=== PATIENT | female | born 1955 | race American Indian/Alaskan Native ===

== ENCOUNTER 2017-03-24 14:38 | Outpatient (CLI) | payer OTHER ==
--- NOTE | 2017-03-28 09:28 | Mammography Report ---
Bilateral mammogram: No previous studies available. CAD study utilized. Findings: Predominance adipose tissue bilaterally. No mass or microcalcification. Benign axillary nodes. Benign calcifications. Impression: Benign findings. Annual followup recommended. BI-RADS CATEGORY: 2 = Benign ACR BI-RADS MAMMOGRAPHIC CODES: 0 = Needs additional imaging evaluation; 1 = Negative; 2 = Benign; 3 = Probably benign; 4 = Suspicious; 5 = Malignant; 6 = Known biopsy-proven malignancy COMMENT: 1. Dense breast tissue, i.e., adenosis, fibrocystic changes, etc., may obscure an underlying neoplasm. 2. Approximately 10% of cancers are not detected with mammography. 3. A negative mammography report should not delay biopsy if a clinically suspicious mass is present. COMMENT: Patient follow-up letters are generated in [employer].
== END 2017-03-24 14:39 | disposition home or self-care (01) ==
LOC: MAMMO 14:38
PROVIDERS: ATTEND Internal Medicine
DX: Z12.31 Encounter for screening mammogram for malignant neoplasm of breast (principal)
CPT/HCPCS: 77067; G0202

== ENCOUNTER 2021-03-04 19:41 | Inpatient (IN) | payer MEDICARE, OTHER ==
--- NOTE | 2021-03-04 21:03 | Event Note ---
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 No preceding fall, trauma, injury. Cannot recall the last time her INR was checked. Patient states she missed a few doses of her anticoagulant a few weeks ago and she was instructed to increase her dose. General: Awake, appropriately interactive, no acute distress. Neck: Supple. Full range of motion intact. Cardiovascular: Normal peripheral perfusion. See musculoskeletal. Pulmonary: No respiratory distress. Patient is speaking normally without use of accessory muscles. Skin: No apparent rashes or lesions. Neurological: No facial asymmetry. Speech is clear. Follows commands. Patient is alert and oriented. Musculoskeletal: Significant pedal edema on the left foot as compared with the right. Tenderness to the left upper calf and left popliteal fossa. Left knee is swollen and warm on palpation as compared with the right knee. There is no overlying erythema. Psych: Cooperative. Appropriate mood and affect. Labs and imaging ordered. Further diagnostic evaluation deferred to additional ED providers following full history and complete physical exam. Attending emergency physician aware. I have greeted and performed a focused rapid initial assessment of this patient. A comprehensive ED assessment and evaluation of the patient, analysis of all test results, and completion of the medical decision-making process will be conducted by additional ED providers. This initial assessment/diagnostic orders/clinical plan/treatment(s) is/are subject to change based on patients health status, clinical progression and re-assessment. Further treatment and workup at subsequent clinical provider's discretion. Patient/guardian urged not to elope from the ED as their condition may be serious if not clinically assessed and managed.
--- NOTE | 2021-03-04 21:24 | XRay Report ---
LEFT KNEE 3 VIEWS INDICATION / CLINICAL INFORMATION: left knee pain/swelling, on coumadin,hemarthrosis COMPARISON: None available. FINDINGS: BONES and JOINT(S): No acute fracture or subluxation. There is mild tricompartmental osteoarthritis. SOFT TISSUES: There is a small joint effusion versus synovial proliferation. No other significant abn ormalities. ADDITIONAL FINDINGS: None. IMPRESSION: 1. Small left knee joint effusion versus synovial proliferation. No other acute findings. 2. Mild osteoarthritis. Signer Name: Aashish Alvarez MD Signed: 03/04/2021 9:20 PM Workstation Name: [id number]
[2021-03-04 21:50] LABS: Alanine Aminotransferase 11 units/L (7-56); BUN/Creatinine Ratio 13; Blood Urea Nitrogen 35 mg/dL (7-17); Hemolysis Index 40
[2021-03-04 22:04] LABS: Erythrocyte Sedimentation Rate 90 mm/Hr (0-20)
[2021-03-04 22:09] LABS: INR 7.74 (0.87-1.13); Partial Thromboplastin Time 89.4 Sec. (24.2-36.6)
[2021-03-04 22:18] LABS: Basophils # (Auto) 0.1 K/mm3 (0.0-0.1); Eosinophils # (Auto) 0.4 K/mm3 (0.0-0.4); Eosinophils % (Auto) 3.2 % (0.0-4.3); Hematocrit 36.4 % (30.3-42.9); Hemoglobin 11.8 gm/dl (10.1-14.3); Lymphocytes # (Auto) 4.4 K/mm3 (1.2-5.4); Mean Corpuscular HGB Conc 32 % (30-34); Mean Corpuscular Volume 83 fl (79-97); Monocytes % (Auto) 7.4 % (0.0-7.3); Platelet Count 455 K/mm3 (140-440); Red Cell Distribution Width 15.6 % (13.2-15.2)
--- NOTE | 2021-03-04 22:30 | Emergency Department Report ---
ED General Adult HPI - General Chief complaint: Extremity Injury, Lower Stated complaint: LT KNEE,LEG,ANKLE, AND FOOT PAIN PUI?: No Time Seen by Provider: 03/04/21 20:44 Source: patient Mode of arrival: Ambulatory Limitations: No Limitations - History of Present Illness Initial comments: Patient is a 65-year-old female who presents emergency room with complaints of bilateral lower extremity swelling, left knee, left ankle and left foot pain. Patient states that her symptoms started 7 days ago. Patient states that her symptoms are worsening. Patient states the pain is worsening. Patient states her swelling is worse. Patient states that the left foot swelling is worse than the right foot. Patient states the pain is a 10 out of 10. Patient states the pain is better with rest and worse with movement and palpation. Patient denies chest pain or shortness of breath. Patient states she is currently on Coumadin. Patient states she has not had her INR checked in couple months. Patient states she missed some doses and she spoke with her primary care and her primary care told her to double her dose for a few days. Patient is not sure what her last INR is. Patient states she has history of renal disease at a stage to stage III. Patient states her baseline creatinine is 1.9-2.1. 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 -: Sudden Location: left, lower extremity Severity scale (0 -10): 10 Consistency: constant Improves with: rest Worsens with: movement Associated Symptoms: denies: confusion, chest pain, cough, diaphoresis, fever/chills, headaches, loss of appetite, malaise, nausea/vomiting, rash, seizure, shortness of breath, syncope, weakness Treatments Prior to Arrival: none - Related Data Allergies Allergy/AdvReac Type Severity Reaction Status Date / Time egg AdvReac Vomiting Unverified 03/24/17 14:39 Sulfa (Sulfonamide AdvReac Swelling Unverified 03/24/17 14:39 Antibiotics) OF THE THROAT DAIRY PRODUCTS AdvReac Vomiting Uncoded 03/24/17 14:39 ED Review of Systems ROS: Stated complaint: LT KNEE,LEG,ANKLE, AND FOOT PAIN Other details as noted in HPI Constitutional: denies: chills, fever Eyes: denies: eye pain, eye discharge, vision change ENT: denies: ear pain, throat pain Respiratory: denies: cough, shortness of breath, wheezing Cardiovascular: denies: chest pain, palpitations Endocrine: no symptoms reported Gastrointestinal: denies: abdominal pain, nausea, diarrhea Genitourinary: denies: urgency, dysuria, discharge Musculoskeletal: denies: back pain, joint swelling, arthralgia Skin: denies: rash, lesions Neurological: denies: headache, weakness, paresthesias Psychiatric: denies: anxiety, depression Hematological/Lymphatic: denies: easy bleeding, easy bruising ED Past Medical Hx - Past Medical History Previous Medical History?: Yes Hx Diabetes: Yes Hx Renal Disease: Yes (Baseline creatinine 1.9-2.1) - Surgical History Past Surgical History?: Yes Hx Cholecystectomy: Yes Additional Surgical History: pacemaker/defib - Family History Family history: no significant - Social History Smoking Status: Never Smoker Substance Use Type: None ED Physical Exam - General Limitations: No Limitations General appearance: alert, in no apparent distress - Head Head exam: Present: atraumatic, normocephalic - Eye Eye exam: Present: normal appearance - ENT ENT exam: Present: mucous membranes moist - Neck Neck exam: Present: normal inspection - Respiratory Respiratory exam: Present: normal lung sounds bilaterally. Absent: respiratory distress - Cardiovascular Cardiovascular Exam: Present: regular rate, normal rhythm. Absent: systolic murmur, diastolic murmur, rubs, gallop - GI/Abdominal GI/Abdominal exam: Present: soft, normal bowel sounds - Extremities Exam Extremities exam: Present: tenderness, normal capillary refill, pedal edema, calf tenderness - Back Exam Back exam: Present: normal inspection - Neurological Exam Neurological exam: Present: alert, oriented X3 - Psychiatric Psychiatric exam: Present: normal affect, normal mood - Skin Skin exam: Present: warm, dry, intact, normal color. Absent: rash ED Course Vital Signs 03/04/21 20:00 Temperature 98.1 F Pulse Rate 76 Respiratory 16 Rate Blood Pressure 129/79 O2 Sat by Pulse 97 Oximetry - Reevaluation(s) Reevaluation #1: I discussed all results with patient. I discussed plan of care with patient. Patient agrees with plan of care and admission. Patient to be admitted to the hospitalist service. 03/05/21 00:06 - Consultations Consultation #1: Hospitalist consulted for admission. Hospitalist to admit patient. 03/05/21 00:06 ED Medical Decision Making - Lab Data Result diagrams: 03/04/21 21:02 03/04/21 21:02 - Radiology Data Radiology results: report reviewed, image reviewed DUPLEX DOPPLER LOWER EXTREMITY VEINS, LEFT INDICATION / CLINICAL INFORMATION: painful LLE swelling, hx blood clots, on Coumadin. TECHNIQUE: Duplex doppler imaging was performed through the veins of the left lower extremity using venous compression and other maneuvers. COMPARISON: None available. FINDINGS: LEFT COMMON FEMORAL VEIN: Negative. LEFT FEMORAL VEIN: Negative. LEFT POPLITEAL VEIN: Negative. LEFT CALF VEINS: Negative. ADDITIONAL FINDINGS: None. IMPRESSION: 1. No sonographic evidence for DVT in the left lower extremity. LEFT KNEE 3 VIEWS INDICATION / CLINICAL INFORMATION: left knee pain/swelling, on coumadin,hemarthrosis COMPARISON: None available. FINDINGS: BONES and JOINT(S): No acute fracture or subluxation. There is mild tricompartmental osteoarthritis. SOFT TISSUES: There is a small joint effusion versus synovial proliferation. No other significant abnormalities. ADDITIONAL FINDINGS: None. IMPRESSION: 1. Small left knee joint effusion versus synovial proliferation. No other acute findings. 2. Mild osteoarthritis. LEFT FOOT 2 VIEW(S) INDICATION / CLINICAL INFORMATION: foot and ankle pain COMPARISON: None available. FINDINGS: BONES / JOINT(S): No acute fracture or subluxation. No significant arthritis. SOFT TISSUES: Moderate soft tissue swelling. ADDITIONAL FINDINGS: None. LEFT ANKLE 2 VIEW(S) INDICATION / CLINICAL INFORMATION: foot and ankle pain COMPARISON: None available. FINDINGS: BONES / JOINT(S): No acute fracture or subluxation. No significant arthritis. SOFT TISSUES: Moderate soft tissue swelling ADDITIONAL FINDINGS: None. - Medical Decision Making Patient is a 65-year-old female who presents emergency room with complaints of lower extremity swelling, left knee pain, left ankle and foot pain. Patient's lower extremities worse on the left than the right. Patient has pedal edema. Patient had calf tenderness. Patient is currently on warfarin for DVT but has not had her INR checked 2 months. Patient has missed a few doses but also has taken extra doses throughout the last few months. Patient had ultrasound done which was negative for DVT. Patient had a knee x-ray and a ankle and foot x-ray and all 3 were negative for acute findings. Patient had labs done. Patient's labs were significant for acute on chronic kidney failure. Patient's baseline creatinine is 1.9-2.0. Patient's current creatinine was 2.8 here in the ER. Patient also had a supratherapeutic INR. Patient does not have any life- threatening bleeding and does not require vitamin K administration. Patient admitted to the hospital service for further evaluation treatment. Critical care time documented due to the multiple reassessments, prolonged time at the bedside, interpretation of diagnostics and labs. - Differential Diagnosis Sprain, strain, fracture, leg pain, knee pain, DVT Critical Care Time: Yes Critical care time in (mins) excluding proc time.: 35 Critical care attestation.: If time is entered above; I have spent that time in minutes in the direct care of this critically ill patient, excluding procedure time. Critical Care Time: 35 minutes ED Disposition Clinical Impression: Supratherapeutic INR, Swelling of lower extremity, Left foot pain Acute on chronic renal failure Qualifiers: Acute renal failure type: unspecified Chronic kidney disease stage: unspecified stage Qualified Code(s): N17.9 - Acute kidney failure, unspecified; N18.9 - Chronic kidney disease, unspecified Lower extremity pain Qualifiers: Laterality: left Qualified Code(s): M79.605 - Pain in left leg Left knee pain Qualifiers: Chronicity: acute Qualified Code(s): M25.562 - Pain in left knee Left ankle pain Qualifiers: Chronicity: acute Qualified Code(s): M25.572 - Pain in left ankle and joints of left foot Disposition: 09 ADMITTED INPATIENT Is pt being admited?: Yes Does the pt Need Aspirin: No Condition: Critical Time of Disposition: 00:15
--- NOTE | 2021-03-04 22:45 | Vascular Lab Report ---
DUPLEX DOPPLER LOWER EXTREMITY VEINS, LEFT INDICATION / CLINICAL INFORMATION: painful LLE swelling, hx blood clots, on Coumadin. TECHNIQUE: Duplex doppler imaging was performed through the veins of the left lower extremity using v enous compression and other maneuvers. COMPARISON: None available. FINDINGS: LEFT COMMON FEMORAL VEIN: Negative. LEFT FEMORAL VEIN: Negative. LEFT POPLITEAL VEIN: Negative. LEFT CALF VEINS: Negative. ADDITIONAL FINDINGS: None. IMPRESSION: 1. No sonographic evidence for DVT in the left lower extremity. Signer Name: Hemant Paige DO Signed: 03/04/2021 10:41 PM Workstation Name: [id number]
--- NOTE | 2021-03-04 23:01 | XRay Report ---
LEFT FOOT 2 VIEW(S) INDICATION / CLINICAL INFORMATION: foot and ankle pain COMPARISON: None available. FINDINGS: BONES / JOINT(S): No acute fracture or subluxation. No significant arthritis. SOFT TISSUES: Moderate soft tissue swelling. ADDITIONAL FINDINGS: None. LEFT ANKLE 2 VIEW(S) INDICATION / CLINICAL INFORMATION: foot and ankle pain COMPARISON: None available. FINDINGS: BONES / JOINT(S): No acute fracture or subluxation. No significant arthritis. SOFT TISSUES: Moderate soft tissue swelling ADDITIONAL FINDINGS: None. Signer Name: Hemant Paige DO Signed: 03/04/2021 10:57 PM Workstation Name: [id number]
[2021-03-05] MEDS ORDERED: ACETAMINOPHEN 325 MG TAB PO PRN (01:23)
[2021-03-05] MEDS ORDERED: ALBUTEROL 2.5 MG/3 ML NEBU IH PRN (01:23)
[2021-03-05] MEDS ORDERED: ONDANSETRON 4 MG/2 ML INJ IV PRN (01:23)
[2021-03-05] MEDS ORDERED: HYDROmorphone 1 MG/1 ML INJ IV PRN (01:23)
--- NOTE | 2021-03-05 01:31 | History and Physical Report ---
History of Present Illness Date of examination: 03/05/21 Date of admission: 03/05/21 Chief complaint: Left lower extremity pain swelling Supratherapeutic INR Left knee, leg, ankle and foot pain History of present illness: 65-year-old female with past medical history of diabetes, renal disease baseline creatinine 1.9-2.1 was brought to the emergency department because of lower extremity swelling, left knee pain, left ankle and foot pain. omplaints of bilateral lower extremity swelling, left knee, left ankle and left foot pain. Patient states that her symptoms started 7 days ago. Patient states that her symptoms are worsening. Patient states the pain is worsening. Patient states her swelling is worse. Patient states that the left foot swelling is worse than the right foot. Patient states the pain is a 10 out of 10. Patient states the pain is better with rest and worse with movement and palpation. Patient denies chest pain or shortness of breath. Patient's lower extremities worse on the left than the right. Patient has pedal edema. Patient had calf tenderness. Patient is currently on warfarin for DVT but has not had her INR checked 2 months. Patient has missed a few doses but also has taken extra doses throughout the last few months. Patient had ultrasound done which was negative for DVT. Patient had a knee x-ray and a ankle and foot x-ray and all 3 were negative for acute findings. Patient had labs done. Patient's labs were significant for acute on chronic kidney failure. Patient's baseline creatinine is 1.9-2.0. Patient's current creatinine was 2.8 here in the ER. Patient also had a supratherapeutic INR. Patient does not have any life-threatening bleeding and does not require vitamin K administration. Patient admitted to the hospital service for further evaluation treatment. Past History Past Medical History: diabetes, DVT, renal failure Medications and Allergies Allergies Allergy/AdvReac Type Severity Reaction Status Date / Time egg AdvReac Vomiting Unverified 03/24/17 14:39 Sulfa (Sulfonamide AdvReac Swelling Unverified 03/24/17 14:39 Antibiotics) OF THE THROAT DAIRY PRODUCTS AdvReac Vomiting Uncoded 03/24/17 14:39 Active Meds: Active Medications Acetaminophen (Acetaminophen 325 Mg Tab) 650 mg PO Q4H PRN PRN Reason: Pain MILD(1-3)/Fever >100.5/CARPIO Albuterol (Albuterol 2.5 Mg/3 Ml Nebu) 2.5 mg IH Q4HRT PRN PRN Reason: Shortness Of Breath Albuterol/Ipratropium (Ipratropium/Albuterol Sulfate 3 Ml Ampul.Neb) 1 ampul IH Q6HRT RITA Famotidine (Famotidine 20 Mg Tab) 20 mg PO BID RITA Hydromorphone HCl (Hydromorphone 1 Mg/1 Ml Inj) 0.5 mg IV Q3H PRN PRN Reason: Pain , Severe (7-10) Ondansetron HCl (Ondansetron 4 Mg/2 Ml Inj) 4 mg IV Q8H PRN PRN Reason: Nausea And Vomiting Oxycodone/Acetaminophen (Oxycodone /Acetaminophen 5-325mg Tab) 1 tab PO Q6H PRN PRN Reason: Pain, Moderate (4-6) Sodium Chloride (Sodium Chloride 0.9% 10 Ml Flush Syringe) 10 ml IV BID RITA Sodium Chloride (Sodium Chloride 0.9% 10 Ml Flush Syringe) 10 ml IV PRN PRN PRN Reason: LINE FLUSH Review of Systems All systems: negative Musculoskeletal: other (Pain swelling of the left lower extremity left ankle left foot. Edema) Exam - Constitutional Vitals: Temp Pulse Resp BP Pulse Ox 98.7 F 69 15 145/70 100 03/05/21 00:57 03/05/21 00:49 03/05/21 00:49 03/05/21 00:58 03/05/21 00:49 General appearance: Present: no acute distress, well-nourished - EENT Eyes: Present: PERRL ENT: hearing intact, clear oral mucosa - Neck Neck: Present: supple, normal ROM - Respiratory Respiratory effort: normal Respiratory: bilateral: diminished - Cardiovascular Heart Sounds: Present: S1 & S2. Absent: rub, click - Extremities Extremities: pulses symmetrical, No edema Peripheral Pulses: within normal limits - Abdominal General gastrointestinal: Present: soft, non-tender, non-distended, normal bowel sounds Female genitourinary: Present: normal - Integumentary Integumentary: Present: clear, warm, dry - Musculoskeletal Musculoskeletal: other (tenderness, normal capillary refill, pedal edema, calf tenderness) - Psychiatric Psychiatric: appropriate mood/affect, intact judgment & insight - Neurologic Neurologic: CNII-XII intact, moves all extremities Results - Labs CBC & Chem 7: 03/04/21 21:02 03/04/21 21:02 Labs: Laboratory Last Values WBC 13.6 K/mm3 (4.5-11.0) H 03/04/21 21: RBC 4.40 M/mm3 (3.65-5.03) 03/04/21 21: Hgb 11.8 gm/dl (10.1-14.3) 03/04/21 21: Hct 36.4 % (30.3-42.9) 03/04/21 21: MCV 83 fl (79-97) 03/04/21 21: MCH 27 pg (28-32) L 03/04/21: MCHC 32 % (30-34) 03/04/21 21: RDW 15.6 % (13.2-15.2) H 03/04/21 21: Plt Count 455 K/mm3 (140-440) H 03/04/21 21: Lymph % (Auto) 32.0 % (13.4-35.0) 03/04/21 21: [place] % (Auto) 7.4 % (0.0-7.3) H 03/04/21 21: Eos % (Auto) 3.2 % (0.0-4.3) 03/04/21 21: Baso % (Auto) 1.0 % (0.0-1.8) 03/04/21 21: Lymph # (Auto) 4.4 K/mm3 (1.2-5.4) 03/04/21 21: [place] # (Auto) 1.0 K/mm3 (0.0-0.8) H 03/04/21 21: Eos # (Auto) 0.4 K/mm3 (0.0-0.4) 03/04/21 21: Baso # (Auto) 0.1 K/mm3 (0.0-0.1) 03/04/21 21: Seg Neutrophils % 56.4 % (40.0-70.0) 03/04/21 21: Seg Neutrophils # 7.7 K/mm3 (1.8-7.7) 10/21/21 21:02 ESR 90 mm/Hr (0-20) 03/04/21 21:02 PT 69.9 Sec. (12.2-14.9) H 03/04/21 21:02 INR 7.74 (0.87-1.13) H* 03/04/21 21:02 APTT 89.4 Sec. (24.2-36.6) H* 03/04/21 21:02 Sodium 141 mmol/L (137-145) 03/04/21 21:02 Potassium 5.0 mmol/L (3.6-5.0) 03/04/21 21:02 Chloride 110.0 mmol/L (98-107) H 03/04/21 21:02 Carbon Dioxide 17 mmol/L (22-30) L 03/04/21 21:02 Anion Gap 19 mmol/L 03/04/21 21:02 BUN 35 mg/dL (7-17) H 03/04/21 21:02 Creatinine 2.8 mg/dL (0.6-1.2) H 03/04/21 21:02 Estimated GFR 21 ml/min 03/04/21 21:02 BUN/Creatinine Ratio 13 % 03/04/21 21:02 Glucose 112 mg/dL (65-100) H 03/04/21 21:02 Calcium 9.0 mg/dL (8.4-10.2) 03/04/21 21:02 Total Bilirubin < 0.20 mg/dL (0.1-1.2) 03/04/21 21:02 AST 14 units/L (5-40) 03/04/21 21:02 ALT 11 units/L (7-56) 03/04/21 21:02 Alkaline Phosphatase 100 units/L (35-129) 03/04/21 21:02 C-Reactive Protein 1.00 mg/dL (0.00-1.30) 03/04/21 21:02 Total Protein 7.4 g/dL (6.3-8.2) 03/04/21 21:02 Albumin 4.0 g/dL (3.9-5) 03/04/21 21:02 Albumin/Globulin Ratio 1.2 % 03/04/21 21:02 - Imaging and Cardiology Venous US: report reviewed Assessment and Plan VTE prophylaxis?: Mechanical Plan of care discussed with patient/family: Yes - Patient Problems (1) Supratherapeutic INR Status: Acute Plan to address problem: Admit the patient to the medical telemetry. We will hold the Coumadin.Patient does not have any life-threatening bleeding and does not require vitamin K administration. We will monitor the PT/INR closely. Recheck PT/INR in the morning (2) Acute on chronic renal failure Status: Acute Qualifiers: Acute renal failure type: unspecified Chronic kidney disease stage: unspecified stage Qualified Code(s): N17.9 - Acute kidney failure, unspecified; N18.9 - Chronic kidney disease, unspecified Plan to address problem: Avoid nephrotoxic drug. Renally dose medication. Nephrology evaluation. Recheck BMP in the morning (3) Swelling of lower extremity Status: Acute Plan to address problem: Tylenol 650 mg p.o. every 6 hours as needed. We will hold the Lasix because of her renal insufficiency. Will consult physical therapy evaluation. Venous ultrasound is negative for DVT (4) Left ankle pain Status: Acute Qualifiers: Chronicity: acute Qualified Code(s): M25.572 - Pain in left ankle and joints of left foot Plan to address problem: Tylenol 650 mg p.o. every 6 hours as needed. We will hold the Lasix because of her renal insufficiency. Will consult physical therapy evaluation. Venous ultrasound is negative for DVT (5) Left foot pain Status: Acute Plan to address problem: Tylenol 650 mg p.o. every 6 hours as needed. We will hold the Lasix because of her renal insufficiency. Will consult physical therapy evaluation. (6) DVT prophylaxis Status: Acute Plan to address problem: Patient is on Coumadin with supratherapeutic INR. Pepcid 20 mg p.o. twice daily for GI prophylaxis. Patient is a full code
[2021-03-05] MEDS: oxyCODONE /ACETAMINOPHEN 5-325MG TAB PO PRN ×3 (06:49→23:06)
--- NOTE | 2021-03-05 08:58 | Consultation ---
History of Present Illness - Reason for Consult Consult date: 03/05/21 chronic renal failure - History of Present Illness The patient is a 65 YO female known to our service with history significant for Morbid Obesity, DM-2, HTN, s/p PPM, DVT, Tobacco smoking and CKD-4 who was brought to [facility] ED 03/04 for evaluation of lower extremity swelling, left knee pain, left ankle and foot pain for the past week. Patient states the pain is a 10 out of 10, better with rest and worse with movement and palpation. Patient denies chest pain, shortness of breath, cough, hemoptysis, prolonged travel/immo bility, N, V, D, abd pain, urinary symptoms, dizziness, syncope, fever or chills. Patient is currently on warfarin for DVT but has not had her INR checked 2 months. Patient has missed a few doses but also has taken extra doses throughout the last few months. In the ED patient had multiple X-rays and ultrasound done, negative. Labs were significant for Creat 2.5, BUN 35 and bicarb 18. INR 8.79. Patient was admitted to the hospital service. Nephrology was consulted for further evaluation and treatment. Past History Past Medical History: diabetes, DVT, renal failure Medications and Allergies Allergies Allergy/AdvReac Type Severity Reaction Status Date / Time egg AdvReac Vomiting Verified 03/05/21 01:35 Sulfa (Sulfonamide AdvReac Swelling Verified 03/05/21 01:34 Antibiotics) OF THE THROAT DAIRY PRODUCTS AdvReac Vomiting Uncoded 03/24/17 14:39 Home Medications Medication Instructions Recorded Confirmed Last Taken Type Insulin NPH/Regular [NovoLIN 70/30] 25 units SUB-Q BID 03/05/21 03/05/21 03/04/21 17:00 History Losartan Potassium 100 mg PO 03/05/21 03/05/21 03/04/21 17:00 History Sodium Bicarbonate 650 mg PO BID 03/05/21 03/05/21 02/25/21 17:00 History Warfarin [Coumadin] 7.5 mg PO QDAY 03/05/21 03/05/21 03/04/21 17:00 History allopurinoL [Zyloprim] 100 mg PO DAILY 03/05/21 03/05/21 03/04/21 17:00 History amLODIPine [Norvasc] 10 mg PO DAILY 10/03/05/21 03/04/21 17:00 History carvediloL [Coreg] 25 mg PO BID 03/05/21 03/05/21 03/04/21 17:00 History Active Meds: Active Medications Acetaminophen (Acetaminophen 325 Mg Tab) 650 mg PO Q4H PRN PRN Reason: Pain MILD(1-3)/Fever >100.5/CARPIO Albuterol (Albuterol 2.5 Mg/3 Ml Nebu) 2.5 mg IH Q4HRT PRN PRN Reason: Shortness Of Breath Albuterol/Ipratropium (Ipratropium/Albuterol Sulfate 3 Ml Ampul.Neb) 1 ampul IH Q6HRT RITA Famotidine (Famotidine 10 Mg Tab) 10 mg PO BID RITA Hydromorphone HCl (Hydromorphone 1 Mg/1 Ml Inj) 0.5 mg IV Q3H PRN PRN Reason: Pain , Severe (7-10) Ondansetron HCl (Ondansetron 4 Mg/2 Ml Inj) 4 mg IV Q8H PRN PRN Reason: Nausea And Vomiting Oxycodone/Acetaminophen (Oxycodone /Acetaminophen 5-325mg Tab) 1 tab PO Q6H PRN PRN Reason: Pain, Moderate (4-6) Last Admin: 03/05/21 06:49 Dose: 1 tab Documented by: Sodium Chloride (Sodium Chloride 0.9% 10 Ml Flush Syringe) 10 ml IV BID RITA Sodium Chloride (Sodium Chloride 0.9% 10 Ml Flush Syringe) 10 ml IV PRN PRN PRN Reason: LINE FLUSH Review of Systems All systems: negative Exam - Vital Signs Vital signs: Vital Signs Temp Pulse Resp BP Pulse Ox 98.1 F 76 16 129/79 97 03/04/21 20:00 03/04/21 20:00 03/04/21 20:00 03/04/21 20:00 03/04/21 20:00 Results - Lab Results 03/05/21 10:09 03/05/21 10:09 Most recent lab results Calcium 9.0 mg/dL (8.4-10.2) 03/04/21 21:02 Assessment and Plan 1. CKD stage 4: Known h/o CKD-4. Renal function is around her baseline. Monitor renal function. Avoid nephrotoxic agents. Meds dosage based on GFR. 2. FEN: Metabolic acidosis, Sod bicarb, monitor. Volume overload, Lasix. Monitor lytes and volume status. 3. LE swelling and pain: Negative X-ray and duplex scan. Monitor. 4. Supra-therapeutic INR: Per primary. Monitor. 5. DM-2. 6. Hypertension, POA: Monitor BP. Adjust meds as needed. 7. Tobacco smoking: Counseled. Subjective: Patient was seen and examined at the bedside. Examination: General appearance: well-developed, obese, appears emaciated, no distress HEENT: atraumatic Eyes: pupils equal Neck: trachea midline Respiratory: ctab Heart: S1S2, no murmur Abdomen: soft, not distended, bowel sounds heard, NT Integumentary: no obvious rash Neurologic: AO, able to move extremities Ext: 1+ LE edema
[2021-03-05] MEDS: FAMOTIDINE 10 MG TAB PO SCH ×2 (09:47→23:02)
[2021-03-05] MEDS ORDERED: FAMOTIDINE 20 MG TAB PO SCH (10:00)
--- NOTE | 2021-03-05 11:21 | Event Note ---
Date: 03/05/21 Patient with bilateral leg edema, supratherapeutic INR from Coumadin, acute on CKD. Continue to hold Coumadin. Continue current management.
[2021-03-05 11:27] LABS: Calcium 8.8 mg/dL (8.4-10.2)
[2021-03-05 12:15] LABS: Hematocrit 35.2 % (30.3-42.9); Hemoglobin 11.1 gm/dl (10.1-14.3); Mean Corpuscular HGB Conc 32 % (30-34); Mean Corpuscular Volume 83 fl (79-97); Platelet Count 418 K/mm3 (140-440); Red Blood Count 4.23 M/mm3 (3.65-5.03)
[2021-03-05] MEDS ORDERED: DEXTROSE 50% IN WATER (25GM) 50 ML SYRINGE IV PRN (12:27)
[2021-03-05 12:28] LABS: INR 8.79 (0.87-1.13)
[2021-03-05] MEDS: carvediloL 25 MG TAB PO SCH ×2 (12:37→23:00)
[2021-03-05] MEDS: amLODIPine 10 MG TAB PO SCH (13:57)
--- NOTE | 2021-03-05 14:06 | XRay Report ---
CHEST 1 VIEW 03/05/2021 12:14 PM INDICATION / CLINICAL INFORMATION: Leg edema, bilateral. COMPARISON: None available. FINDINGS: SUPPORT DEVICES: AICD is noted HEART / MEDIASTINUM: No significant abnormality. LUNGS / PLEURA: There is mild venous congestion. No focal infiltrate is seen.. No pneumothorax. ADDITIONAL FINDINGS: No significant additional findings. IMPRESSION: 1. There is mild venous congestion. No focal infiltrate is seen. Signer Name: Stanton Su MD Signed: 03/05/2021 2:02 PM Workstation Name: [email or web address]
[2021-03-05] MEDS: IPRATROPIUM/ALBUTEROL SULFATE 3 ML AMPUL.NEB IH SCH ×3 (14:49→20:32)
--- NOTE | 2021-03-05 16:49 | Consultation ---
History of Present Illness Consult date: 03/05/21 Requesting physician: WILLY PENDLETON Consult reason: other (ICD) History of present illness: Patient is a 65-year-old female with a past medical history of dilated cardiomyopathy, ICD in situ, chronic HFrEF, hypertension, hyperlipidemia, tobacco use, DM, History of gout, CKD IV, bilateral renal infarction due thrombus( on Coumadin for anticoagulation) [facility] for left lower extremity swelling and knee pain for the past week. She reports the pain being a 10 and a 10 and states that due to the pain she was unable to walk because of it. She locates the pain and swelling around her left knee. States pain is exacerbated with movement and palpation and pain is relieved with rest. Patient currently denies any cardiac symptoms including chest pain, palpitation, or shortness of breath. Of note x-rays of knee ankle and foot are negative for acute findings and ultrasound of left lower extremity is negative for DVT. Furthermore patient was INR was found to be supratherapeutic and have an elevated creatinine of 2.8. Patient was seen by previously by Dr. Meehan of our group. Cardiology is consulted because patient has ICD. Past History Past Medical History: diabetes, DVT, renal failure Social history: smoking Family history: CAD, hypertension Medications and Allergies Allergies Allergy/AdvReac Type Severity Reaction Status Date / Time egg AdvReac Vomiting Verified 03/05/21 01:35 Sulfa (Sulfonamide AdvReac Swelling Verified 03/05/21 01:34 Antibiotics) OF THE THROAT DAIRY PRODUCTS AdvReac Vomiting Uncoded 03/24/17 14:39 Home Medications Medication Instructions Recorded Confirmed Last Taken Type Insulin NPH/Regular [NovoLIN 70/30] 25 units SUB-Q BID 03/05/21 03/05/21 03/04/21 17:00 History Losartan Potassium 100 mg PO 03/05/21 03/05/21 03/04/21 17:00 History Sodium Bicarbonate 650 mg PO BID 03/05/21 03/05/21 02/25/21 17:00 History Warfarin [Coumadin] 7.5 mg PO QDAY 03/05/21 03/05/21 03/04/21 17:00 History allopurinoL [Zyloprim] 100 mg PO DAILY 03/05/21 03/05/21 03/04/21 17:00 History amLODIPine [Norvasc] 10 mg PO DAILY 03/05/21 03/05/21 03/04/21 17:00 History carvediloL [Coreg] 25 mg PO BID 03/05/21 03/05/21 03/04/21 17:00 History Active Meds: Active Medications Acetaminophen (Acetaminophen 325 Mg Tab) 650 mg PO Q4H PRN PRN Reason: Pain MILD(1-3)/Fever >100.5/CARPIO Albuterol (Albuterol 2.5 Mg/3 Ml Nebu) 2.5 mg IH Q4HRT PRN PRN Reason: Shortness Of Breath Albuterol/Ipratropium (Ipratropium/Albuterol Sulfate 3 Ml Ampul.Neb) 1 ampul IH Q6HRT [facility] Last Admin: 03/05/21 14:50 Dose: Not Given Documented by: Allopurinol (Allopurinol 100 Mg Tab) 100 mg PO DAILY [facility] Amlodipine Besylate (Amlodipine 10 Mg Tab) 10 mg PO DAILY [facility] Last Admin: 03/05/21 13:57 Dose: 10 mg Documented by: Carvedilol (Carvedilol 25 Mg Tab) 25 mg PO BID [facility] Last Admin: 03/05/21 12:37 Dose: Not Given Documented by: Dextrose (Dextrose 50% In Water (25gm) 50 Ml Syringe) 50 ml IV Q30MIN PRN; Protocol PRN Reason: Hypoglycemia Famotidine (Famotidine 10 Mg Tab) 10 mg PO BID [facility] Last Admin: 03/05/21 09:47 Dose: Not Given Documented by: Hydromorphone HCl (Hydromorphone 1 Mg/1 Ml Inj) 0.5 mg IV Q3H PRN PRN Reason: Pain , Severe (7-10) Insulin Human Isoph/Insulin Regular (Insulin Nph/Regular 70/30 Inj) 10 unit SUB-Q BIDDIAB [facility] Insulin Human Lispro (Insulin Lispro 100 Unit/Ml) 0 unit SUB-Q AC [facility]; Protocol Insulin Human Lispro (Insulin Lispro 100 Unit/Ml) 0 unit SUB-Q QHS [facility]; Protocol Ondansetron HCl (Ondansetron 4 Mg/2 Ml Inj) 4 mg IV Q8H PRN PRN Reason: Nausea And Vomiting Oxycodone/Acetaminophen (Oxycodone /Acetaminophen 5-325mg Tab) 1 tab PO Q6H PRN PRN Reason: Pain, Moderate (4-6) Last Admin: 03/05/21 13:58 Dose: 1 tab Documented by: Sodium Bicarbonate (Sodium Bicarbonate 650 Mg Tab) 650 mg PO TID RITA Sodium Chloride (Sodium Chloride 0.9% 10 Ml Flush Syringe) 10 ml IV BID RITA Last Admin: 03/05/21 09:48 Dose: Not Given Documented by: Sodium Chloride (Sodium Chloride 0.9% 10 Ml Flush Syringe) 10 ml IV PRN PRN PRN Reason: LINE FLUSH Review of Systems Constitutional: no weight loss, no weight gain, no fever, no chills Ears, nose, mouth and throat: no nasal congestion, no nasal discharge, no sinus pressure Cardiovascular: edema (left knee), no chest pain, no orthopnea, no palpitations, no syncope Gastrointestinal: no nausea, no vomiting, no diarrhea Musculoskeletal: other (left knee pain) Integumentary: no rash, no pruritis, no redness Neurological: no head injury, no transient paralysis, no paralysis Psychiatric: no anxiety, no memory loss, no change in sleep habits Endocrine: no cold intolerance, no heat intolerance Hematologic/Lymphatic: no easy bruising, no easy bleeding Physical Examination Vital Signs Temp Pulse Resp BP Pulse Ox 98.1 F 76 16 129/79 97 03/04/21 20:00 03/04/21 20:00 03/04/21 20:00 03/04/21 20:00 03/04/21 20:00 General appearance: no acute distress HEENT: Positive: PERRL Neck: Positive: trachea midline Cardiac: Positive: Reg Rate and Rhythm Lungs: Positive: Normal Breath Sounds Neuro: Positive: Grossly Intact Abdomen: Positive: Soft, Active Bowel Sounds Skin: Negative: Rash, Suspicious Lesions, Ulceration Extremities: Present: upper extr. pulses, lower extr. pulses, edema (trace) Results 03/05/21 10:09 03/05/21 10:09 Cardiac Enzymes 03/04/21 Range/Units 21:02 AST 14 (5-40) units/L Coagulation 03/04/21 03/05/21 Range/Units 21:02 10:09 PT 69.9 H 77.1 H (12.2-14.9) Sec. INR 7.74 H* 8.79 H* (0.87-1.13) APTT 89.4 H* (24.2-36.6) Sec. CBC 03/04/21 03/05/21 Range/Units 21:02 10:09 WBC 13.6 H 11.0 (4.5-11.0) K/mm3 RBC 4.40 4.23 (3.65-5.03) M/mm3 Hgb 11.8 11.1 (10.1-14.3) gm/dl Hct 36.4 35.2 (30.3-42.9) % Plt Count 455 H 418 (140-440) K/mm3 Lymph # (Auto) 4.4 (1.2-5.4) K/mm3 Iron # (Auto) 1.0 H (0.0-0.8) K/mm3 Eos # (Auto) 0.4 (0.0-0.4) K/mm3 Baso # (Auto) 0.1 (0.0-0.1) K/mm3 Comprehensive Metabolic Panel 03/04/21 03/05/21 Range/Units 21:02 10:09 Sodium 141 141 (137-145) mmol/L Potassium 5.0 4.8 (3.6-5.0) mmol/L Chloride 110.0 H 110.0 H (98-107) mmol/L Carbon Dioxide 17 L 18 L (22-30) mmol/L BUN 35 H 35 H (7-17) mg/dL Creatinine 2.8 H 2.5 H (0.6-1.2) mg/dL Glucose 112 H 226 H (65-100) mg/dL Calcium 9.0 8.8 (8.4-10.2) mg/dL AST 14 (5-40) units/L ALT 11 (7-56) units/L Alkaline Phosphatase 100 (35-129) units/L Total Protein 7.4 (6.3-8.2) g/dL Albumin 4.0 (3.9-5) g/dL - Imaging and Cardiology Echo: pending EKG: pending Assessment and Plan Echocardiogram 08/10/2017 Mild concentric left ventricular hypertrophy. Moderate to severely decreased left ventricular ejection fraction. 3. Left ventricular ejection fraction is 25-30%. Mildly dilated left atrium. 5. Aortic valve is tricuspid, sclerotic and focally calcified. 6. Mild mitral annular calcification. 7. Mild mitral valve regurgitation. 8. No obvious embolic source appreciated. Clinical correlation advised. Cardiac PET - Date: 08/11/2017- No scintigraphic evidence of ischemia. 2. Left ventricular ejection fraction is 31% at rest and 34% at stress. The left ventricle appears dilated 3. Lexiscan stress ECG is non-diagnostic for ischemia. 4. Coronary artery calcium is absent. 5. Please see a separate report dictated by radiology for the chest CT findings Plan: EKG pending ECho pending Hold patient's Coumadin as a result of supratherapeutic INR of 8.79 Hold losartan in the setting of elevated creatinine Continue amlodipine and Coreg for BP control Patient conjunction with Dr. Subramanian who agrees with this plan of care. Will continue to follow - Patient Problems (1) Chronic HFrEF (heart failure with reduced ejection fraction) Current Visit: Yes Status: Acute (2) HTN (hypertension) Current Visit: Yes Status: Acute (3) Acute on chronic renal failure Current Visit: No Status: Acute Qualifiers: Acute renal failure type: unspecified Chronic kidney disease stage: unspecified stage Qualified Code(s): N17.9 - Acute kidney failure, unspecified; N18.9 - Chronic kidney disease, unspecified (4) Left ankle pain Current Visit: No Status: Acute Qualifiers: Chronicity: acute Qualified Code(s): M25.572 - Pain in left ankle and joints of left foot (5) Left foot pain Current Visit: No Status: Acute (6) Left knee pain Current Visit: No Status: Acute Qualifiers: Chronicity: acute Qualified Code(s): M25.562 - Pain in left knee (7) Supratherapeutic INR Current Visit: No Status: Acute
[2021-03-05] MEDS: allopurinoL 100 MG TAB PO SCH (17:10)
[2021-03-05] MEDS: SODIUM BICARBONATE 650 MG TAB PO SCH ×2 (17:11→21:43)
[2021-03-05] MEDS: INSULIN LISPRO 100 UNIT/ML SUB-Q SCH ×2 (18:08→23:02)
[2021-03-05] MEDS: INSULIN NPH/REGULAR 70/30 INJ SUB-Q SCH (18:09)
[2021-03-05] MEDS ORDERED: FUROSEMIDE 40 MG/4 ML INJ IV ONE (22:03)
[2021-03-06] MEDS: IPRATROPIUM/ALBUTEROL SULFATE 3 ML AMPUL.NEB IH SCH ×2 (05:06→08:51)
[2021-03-06 07:04] LABS: Basophils # (Auto) 0.1 K/mm3 (0.0-0.1); Eosinophils # (Auto) 0.4 K/mm3 (0.0-0.4); Eosinophils % (Auto) 3.3 % (0.0-4.3); Hematocrit 32.4 % (30.3-42.9); Hemoglobin 10.7 gm/dl (10.1-14.3); Lymphocytes # (Auto) 3.9 K/mm3 (1.2-5.4); Lymphocytes % (Auto) 35.4 % (13.4-35.0); Mean Corpuscular HGB Conc 33 % (30-34); Mean Corpuscular Volume 84 fl (79-97); Monocytes % (Auto) 9.2 % (0.0-7.3); Platelet Count 396 K/mm3 (140-440); Red Blood Count 3.86 M/mm3 (3.65-5.03); Red Cell Distribution Width 15.7 % (13.2-15.2)
[2021-03-06] MEDS: INSULIN LISPRO 100 UNIT/ML SUB-Q SCH ×4 (07:30→21:42)
[2021-03-06 07:44] LABS: Calcium 8.9 mg/dL (8.4-10.2)
[2021-03-06] MEDS: SODIUM BICARBONATE 650 MG TAB PO SCH ×3 (08:00→21:41)
[2021-03-06] MEDS: INSULIN NPH/REGULAR 70/30 INJ SUB-Q SCH ×2 (08:45→17:55)
[2021-03-06] MEDS: FAMOTIDINE 10 MG TAB PO SCH ×2 (09:35→21:42)
[2021-03-06] MEDS: carvediloL 25 MG TAB PO SCH ×2 (09:35→21:44)
[2021-03-06] MEDS: amLODIPine 10 MG TAB PO SCH (09:36)
[2021-03-06] MEDS: allopurinoL 100 MG TAB PO SCH (09:36)
[2021-03-06] MEDS: oxyCODONE /ACETAMINOPHEN 5-325MG TAB PO PRN ×2 (09:43→21:41)
[2021-03-06] MEDS ORDERED: FUROSEMIDE 20 MG TAB PO SCH (10:00)
--- NOTE | 2021-03-06 10:31 | Progress Note ---
Assessment and Plan Assessment and plan: (1) Supratherapeutic INR Status: Acute Plan to address problem: Admit the patient to the medical telemetry. We will hold the Coumadin.Patient does not have any life-threatening bleeding and does not require vitamin K administration. We will monitor the PT/INR closely. Recheck PT/INR in the morning (2) Acute on chronic renal failure Status: Acute Qualifiers: Acute renal failure type: unspecified Chronic kidney disease stage: unspecified stage Qualified Code(s): N17.9 - Acute kidney failure, unspecified; N18.9 - Chronic kidney disease, unspecified Plan to address problem: Avoid nephrotoxic drug. Renally dose medication. Nephrology evaluation. Recheck BMP in the morning (3) Swelling of lower extremity Status: Acute Plan to address problem: Tylenol 650 mg p.o. every 6 hours as needed. We will hold the Lasix because of her renal insufficiency. Will consult physical therapy evaluation. Venous ultrasound is negative for DVT (4) Left ankle pain Status: Acute Qualifiers: Chronicity: acute Qualified Code(s): M25.572 - Pain in left ankle and joints of left foot Plan to address problem: Tylenol 650 mg p.o. every 6 hours as needed. We will hold the Lasix because of her renal insufficiency. Will consult physical therapy evaluation. Venous ultrasound is negative for DVT (5) Left foot pain Status: Acute Plan to address problem: Tylenol 650 mg p.o. every 6 hours as needed. We will hold the Lasix because of her renal insufficiency. Will consult physical therapy evaluation. (6) DVT prophylaxis Status: Acute Plan to address problem: Patient is on Coumadin with supratherapeutic INR. Pepcid 20 mg p.o. twice daily for GI prophylaxis. Patient is a full code 03/06/21 patient with acute on CKD, bilateral leg swelling, supratherapeutic INR from Coumadin. INR 8.74 today. Started on Lasix. On Coumadin , she says for blood clot in kidneys in 2018 History Interval history: Leg swelling Elevated INR Hospitalist Physical - Physical exam Narrative exam: Gen: Not in acute distress, lying in bed HEENT:Normocephalic,atraumatic Neck:supple, No JVD Lungs:clear to auscultation bilaterally, no wheeze Heart:S1 and S2 reg, no murmurs, rubs or gallop Abd:soft, non tender, non distended, normal bowel sounds Ext; mild bilat pedal edema, no clubbing, no cyanosis Neuro:Awake,alert,oriented X 3, moves all ext, no focal neurological signs - Constitutional Vitals: Temp Pulse Resp BP Pulse Ox 98.2 F 71 20 152/57 97 03/06/21 05:34 03/06/21 05:34 03/06/21 05:34 03/06/21 05:34 03/06/21 08:51 General appearance: Present: no acute distress Results - Labs CBC & Chem 7: 03/06/21 06:05 03/06/21 06:05 Labs: Laboratory Last Values WBC 11.0 K/mm3 (4.5-11.0) 03/06/21 06:05 RBC 3.86 M/mm3 (3.65-5.03) 03/06/21 06:05 Hgb 10.7 gm/dl (10.1-14.3) 03/06/21 06:05 Hct 32.4 % (30.3-42.9) 03/06/21 06:05 MCV 84 fl (79-97) 03/06/21 06:05 MCH 28 pg (28-32) 03/06/21 06:05 MCHC 33 % (30-34) 03/06/21 06:05 RDW 15.7 % (13.2-15.2) H 03/06/21 06:05 Plt Count 396 K/mm3 (140-440) 03/06/21 06:05 Lymph % (Auto) 35.4 % (13.4-35.0) H 03/06/21 06:05 [place] % (Auto) 9.2 % (0.0-7.3) H 03/06/21 06:05 Eos % (Auto) 3.3 % (0.0-4.3) 03/06/21 06:05 Baso % (Auto) 1.0 % (0.0-1.8) 03/06/21 06:05 Lymph # (Auto) 3.9 K/mm3 (1.2-5.4) 03/06/21 06:05 [place] # (Auto) 1.0 K/mm3 (0.0-0.8) H 03/06/21 06:05 Eos # (Auto) 0.4 K/mm3 (0.0-0.4) 03/06/21 06:05 Baso # (Auto) 0.1 K/mm3 (0.0-0.1) 03/06/21 06:05 Seg Neutrophils % 51.1 % (40.0-70.0) 03/06/21 06:05 Seg Neutrophils # 5.6 K/mm3 (1.8-7.7) 03/06/21 06:05 ESR 90 mm/Hr (0-20) 03/04/21 21:02 PT 76.8 Sec. (12.2-14.9) H 03/06/21 09:34 INR 8.79 (0.87-1.13) H* 03/05/21 10:09 APTT 89.4 Sec. (24.2-36.6) H* 03/04/21 21:02 Sodium 142 mmol/L (137-145) 03/06/21 06:05 Potassium 4.5 mmol/L (3.6-5.0) 03/06/21 06:05 Chloride 110.6 mmol/L (98-107) H 03/06/21 06:05 Carbon Dioxide 18 mmol/L (22-30) L 03/06/21 06:05 Anion Gap 18 mmol/L 03/06/21 06:05 BUN 32 mg/dL (7-17) H 03/06/21 06:05 Creatinine 2.4 mg/dL (0.6-1.2) H 03/06/21 06:05 Estimated GFR 25 ml/min 03/06/21 06:05 BUN/Creatinine Ratio 13 % 03/06/21 06:05 Glucose 115 mg/dL (65-100) H 03/06/21 06:05 POC Glucose 124 mg/dL (70-105) H 03/06/21 07:37 Hemoglobin A1c 8.3 % (4-6) H 03/05/21 Unknown Calcium 8.9 mg/dL (8.4-10.2) 03/06/21 06:05 Total Bilirubin < 0.20 mg/dL (0.1-1.2) 03/04/21 21:02 AST 14 units/L (5-40) 03/04/21 21:02 ALT 11 units/L (7-56) 03/04/21 21:02 Alkaline Phosphatase 100 units/L (35-129) 03/04/21 21:02 C-Reactive Protein 1.00 mg/dL (0.00-1.30) 03/04/21 21:02 Total Protein 7.4 g/dL (6.3-8.2) 03/04/21 21:02 Albumin 4.0 g/dL (3.9-5) 03/04/21 21:02 Albumin/Globulin Ratio 1.2 % 03/04/21 21:02 Gill/IV: Voiding Method Toilet Active Medications - Current Medications Current Medications: Generic Name Dose Route Start Last Admin Trade Name Freq PRN Reason Stop Dose Admin Acetaminophen 650 mg 03/05/21 01:23 Acetaminophen 325 Mg Tab PO Q4H PRN Pain MILD(1-3)/Fever >100.5/CARPIO Albuterol 2.5 mg 03/05/21 01:23 Albuterol 2.5 Mg/3 Ml Nebu IH Q4HRT PRN Shortness Of Breath Allopurinol 100 mg 03/05/21 14:00 03/06/21 09:36 Allopurinol 100 Mg Tab PO 100 mg DAILY [facility]ITA Administration Amlodipine Besylate 10 mg 03/05/21 14:00 03/06/21 09:36 Amlodipine 10 Mg Tab PO 10 mg DAILY [facility]ITA Administration Carvedilol 25 mg 03/05/21 13:00 03/06/21 09:35 Carvedilol 25 Mg Tab PO 25 mg BID RITA Administration Dextrose 50 ml 03/05/21 12:27 Dextrose 50% In Water (25gm) 50 Ml Syringe IV Q30MIN PRN Hypoglycemia Protocol Famotidine 10 mg 03/05/21 10:00 03/06/21 09:35 Famotidine 10 Mg Tab PO 10 mg BID RITA Administration Furosemide 60 mg 03/06/21 10:00 Furosemide 20 Mg Tab PO QDAY [facility] Hydromorphone HCl 0.5 mg 03/05/21 01:23 Hydromorphone 1 Mg/1 Ml Inj IV Q3H PRN Pain , Severe (7-10) Insulin Human Isoph/Insulin Regular 10 unit 03/05/21 17:00 03/05/21 18:09 Insulin Nph/Regular 70/30 Inj SUB-Q 10 unit BIDDIAB [facility] Administration Insulin Human Lispro 0 unit 03/05/21 16:30 03/06/21 07:30 Insulin Lispro 100 Unit/Ml SUB-Q Not Given AC [facility] Protocol Insulin Human Lispro 0 unit 03/05/21 22:00 03/05/21 23:02 Insulin Lispro 100 Unit/Ml SUB-Q 1 unit QHS [facility] Administration Protocol Ondansetron HCl 4 mg 03/05/21 01:23 Ondansetron 4 Mg/2 Ml Inj IV Q8H PRN Nausea And Vomiting Oxycodone/Acetaminophen 1 tab 03/05/21 01:23 03/06/21 09:43 Oxycodone /Acetaminophen 5-325mg Tab PO 1 tab Q6H PRN Administration Pain, Moderate (4-6) Sodium Bicarbonate 650 mg 03/05/21 14:00 03/06/21 08:00 Sodium Bicarbonate 650 Mg Tab PO 650 mg TID RITA Administration Sodium Chloride 10 ml 03/05/21 10:00 03/06/21 09:35 Sodium Chloride 0.9% 10 Ml Flush Syringe IV 10 ml BID RITA Administration Sodium Chloride 10 ml 03/05/21 01:23 Sodium Chloride 0.9% 10 Ml Flush Syringe IV PRN PRN LINE FLUSH
[2021-03-06 10:52] LABS: INR 8.74 (0.87-1.13)
--- NOTE | 2021-03-06 12:24 | Electrocardiograph Report ---
[facility] Test Date: 2021-03-06 Test Time: 08:10:33 Pat Name: JANA MCDANIEL Department: Room: A381 1 Gender: F Vehicle [employer] Equipment [employer]: CHRISTELLE : 1955 Requested By: WILLY MADDOX Order Number: [id number] Reading MD: Jeremías Meehan Measurements Intervals Robinson Rate: 66 P: 48 VT: 173 QRS: 13 QRSD: 98 T: 65 QT: 431 QTc: 451 Interpretive Statements Sinus rhythm No previous ECG available for comparison Electronically Signed On 03-06-2021 12:24:30 EDT by Jeremías Meehan
--- NOTE | 2021-03-06 13:06 | Progress Note ---
Assessment and Plan 1. CKD stage 4: Known h/o CKD-4. Renal function is around her baseline. Monitor renal function. Avoid nephrotoxic agents. Meds dosage based on GFR. 2. FEN: Metabolic acidosis, Sod bicarb, monitor. Volume overload, Lasix. Monitor lytes and volume status. 3. LE swelling and pain: Negative X-ray and duplex scan. Monitor. 4. Supra-therapeutic INR: Per primary. Monitor. 5. DM-2. 6. Hypertension, POA: Monitor BP. Adjust meds as needed. 7. Tobacco smoking: Counseled. Subjective: Patient was seen and examined at the bedside. Still have L leg pain. Examination: General appearance: well-developed, obese, appears emaciated, no distress HEENT: atraumatic Eyes: pupils equal Neck: trachea midline Respiratory: ctab Heart: S1S2, no murmur Abdomen: soft, not distended, bowel sounds heard, NT Integumentary: no obvious rash Neurologic: AO, able to move extremities Ext: trace LE edema Subjective Date of service: 03/06/21 Objective - Vital Signs Vital signs: Vital Signs - 12hr 03/06/21 03/06/21 03/06/21 05:34 08:51 10:59 Temperature 98.2 F 98.1 F Pulse Rate 71 68 Respiratory 20 19 Rate Blood Pressure 152/57 141/66 O2 Sat by Pulse 94 97 97 Oximetry - Lab 03/06/21 06:05 03/06/21 06:05 Most recent lab results Calcium 8.9 mg/dL (8.4-10.2) 03/06/21 06:05 Medications & Allergies - Medications Allergies/Adverse Reactions: Allergies egg Adverse Reaction (Verified 03/05/21 01:35) Vomiting Sulfa (Sulfonamide Antibiotics) Adverse Reaction (Verified 03/05/21 01:34) Swelling OF THE THROAT DAIRY PRODUCTS Adverse Reaction (Uncoded 03/24/17 14:39) Vomiting Home Medications: Home Medications Medication Instructions Recorded Confirmed Last Taken Type Insulin NPH/Regular [NovoLIN 70/30] 25 units SUB-Q BID 03/05/21 03/05/21 03/04/21 17:00 History Losartan Potassium 100 mg PO 03/05/21 03/05/21 03/04/21 17:00 History Sodium Bicarbonate 650 mg PO BID 03/05/21 03/05/21 02/25/21 17:00 History Warfarin [Coumadin] 7.5 mg PO QDAY 03/05/21 03/05/21 03/04/21 17:00 History allopurinoL [Zyloprim] 100 mg PO DAILY 03/05/21 03/05/21 03/04/21 17:00 History amLODIPine [Norvasc] 10 mg PO DAILY 03/05/21 03/05/21 03/04/21 17:00 History carvediloL [Coreg] 25 mg PO BID 03/05/21 03/05/21 03/04/21 17:00 History Active Medications: Generic Name Dose Route Start Last Admin Trade Name Freq PRN Reason Stop Dose Admin Acetaminophen 650 mg 03/05/21 01:23 Acetaminophen 325 Mg Tab PO Q4H PRN Pain MILD(1-3)/Fever >100.5/CARPIO Albuterol 2.5 mg 03/05/21 01:23 Albuterol 2.5 Mg/3 Ml Nebu IH Q4HRT PRN Shortness Of Breath Allopurinol 100 mg 03/05/21 14:00 03/06/21 09:36 Allopurinol 100 Mg Tab PO 100 mg DAILY RITA Administration Amlodipine Besylate 10 mg 03/05/21 14:00 03/06/21 09:36 Amlodipine 10 Mg Tab PO 10 mg DAILY RITA Administration Carvedilol 25 mg 03/05/21 13:00 03/06/21 09:35 Carvedilol 25 Mg Tab PO 25 mg BID RITA Administration Dextrose 50 ml 03/05/21 12:27 Dextrose 50% In Water (25gm) 50 Ml Syringe IV Q30MIN PRN Hypoglycemia Protocol Famotidine 10 mg 03/05/21 10:00 03/06/21 09:35 Famotidine 10 Mg Tab PO 10 mg BID RITA Administration Furosemide 60 mg 03/06/21 10:00 03/06/21 12:35 Furosemide 20 Mg Tab PO 60 mg QDAY RITA Administration Hydromorphone HCl 0.5 mg 03/05/21 01:23 Hydromorphone 1 Mg/1 Ml Inj IV Q3H PRN Pain , Severe (7-10) Insulin Human Isoph/Insulin Regular 10 unit 03/05/21 17:00 03/06/21 08:45 Insulin Nph/Regular 70/30 Inj SUB-Q 10 unit BIDDIAB RITA Administration Insulin Human Lispro 0 unit 03/05/21 16:30 03/06/21 11:30 Insulin Lispro 100 Unit/Ml SUB-Q 2 unit AC RITA Administration Protocol Insulin Human Lispro 0 unit 03/05/21 22:00 03/05/21 23:02 Insulin Lispro 100 Unit/Ml SUB-Q 1 unit QHS RITA Administration Protocol Ondansetron HCl 4 mg 03/05/21 01:23 Ondansetron 4 Mg/2 Ml Inj IV Q8H PRN Nausea And Vomiting Oxycodone/Acetaminophen 1 tab 03/05/21 01:23 03/06/21 09:43 Oxycodone /Acetaminophen 5-325mg Tab PO 1 tab Q6H PRN Administration Pain, Moderate (4-6) Sodium Bicarbonate 650 mg 03/05/21 14:00 03/06/21 08:00 Sodium Bicarbonate 650 Mg Tab PO 650 mg TID RITA Administration Sodium Chloride 10 ml 03/05/21 10:00 03/06/21 09:35 Sodium Chloride 0.9% 10 Ml Flush Syringe IV 10 ml BID RITA Administration Sodium Chloride 10 ml 03/05/21 01:23 Sodium Chloride 0.9% 10 Ml Flush Syringe IV PRN PRN LINE FLUSH
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
[2021-03-07 05:08] LABS: Hematocrit 32.6 % (30.3-42.9); Hemoglobin 10.6 gm/dl (10.1-14.3); Mean Corpuscular HGB Conc 33 % (30-34); Mean Corpuscular Volume 83 fl (79-97); Platelet Count 387 K/mm3 (140-440); Red Blood Count 3.91 M/mm3 (3.65-5.03); Red Cell Distribution Width 15.8 % (13.2-15.2)
[2021-03-07 05:27] LABS: Calcium 8.8 mg/dL (8.4-10.2)
[2021-03-07 05:43] LABS: INR 7.96 (0.87-1.13)
[2021-03-07] MEDS: INSULIN LISPRO 100 UNIT/ML SUB-Q SCH ×4 (07:30→21:45)
[2021-03-07] MEDS: SODIUM BICARBONATE 650 MG TAB PO SCH ×3 (08:00→21:44)
[2021-03-07] MEDS: INSULIN NPH/REGULAR 70/30 INJ SUB-Q SCH ×2 (08:00→17:01)
--- NOTE | 2021-03-07 08:47 | Progress Note ---
Assessment and Plan Assessment and plan: (1) Supratherapeutic INR Status: Acute Plan to address problem: Admit the patient to the medical telemetry. We will hold the Coumadin.Patient does not have any life-threatening bleeding and does not require vitamin K administration. We will monitor the PT/INR closely. Recheck PT/INR in the morning (2) Acute on chronic renal failure Status: Acute Qualifiers: Acute renal failure type: unspecified Chronic kidney disease stage: unspecified stage Qualified Code(s): N17.9 - Acute kidney failure, unspecified; N18.9 - Chronic kidney disease, unspecified Plan to address problem: Avoid nephrotoxic drug. Renally dose medication. Nephrology evaluation. Recheck BMP in the morning (3) Swelling of lower extremity Status: Acute Plan to address problem: Tylenol 650 mg p.o. every 6 hours as needed. We will hold the Lasix because of her renal insufficiency. Will consult physical therapy evaluation. Venous ultrasound is negative for DVT Chronic systolic CHF (4) Left ankle pain Status: Acute Qualifiers: Chronicity: acute Qualified Code(s): M25.572 - Pain in left ankle and joints of left foot Plan to address problem: Tylenol 650 mg p.o. every 6 hours as needed. We will hold the Lasix because of her renal insufficiency. Will consult physical therapy evaluation. Venous ultrasound is negative for DVT (5) Left foot pain Status: Acute Plan to address problem: Tylenol 650 mg p.o. every 6 hours as needed. We will hold the Lasix because of her renal insufficiency. Will consult physical therapy evaluation. (6) DVT prophylaxis Status: Acute Plan to address problem: Patient is on Coumadin with supratherapeutic INR. Pepcid 20 mg p.o. twice daily for GI prophylaxis. Patient is a full code 03/06/21 patient with acute on CKD, bilateral leg swelling, supratherapeutic INR from Coumadin. INR 8.74 today. Started on Lasix. On Coumadin , she says for blood clot in kidneys in 2018 03/07/21 patient with acute on CKD, chronic systolic CHF, history of bilateral renal infarcts. Was on Coumadin, now on hold because supratherapeutic INR 7.96 today. Cr 3.0 today, worse. I discussed with Dr. Cochran and he recommends hold Lasix for now. History Interval history: Leg swelling Elevated INR Hospitalist Physical - Physical exam Narrative exam: Gen: Not in acute distress, lying in bed HEENT:Normocephalic,atraumatic Neck:supple, No JVD Lungs:clear to auscultation bilaterally, no wheeze Heart:S1 and S2 reg, no murmurs, rubs or gallop Abd:soft, non tender, non distended, normal bowel sounds Ext; mild bilat pedal edema, no clubbing, no cyanosis Neuro:Awake,alert,oriented X 3, moves all ext, no focal neurological signs - Constitutional Vitals: Temp Pulse Resp BP Pulse Ox 98.2 F 59 L 20 147/62 97 03/07/21 05:15 03/07/21 05:15 03/07/21 05:15 03/07/21 05:15 03/07/21 08:20 General appearance: Present: no acute distress Results - Labs CBC & Chem 7: 03/07/21 05:00 03/07/21 05:00 Labs: Laboratory Last Values WBC 11.6 K/mm3 (4.5-11.0) H 03/07/21 05:00 RBC 3.91 M/mm3 (3.65-5.03) 03/07/21 05:00 Hgb 10.6 gm/dl (10.1-14.3) 03/07/21 05:00 Hct 32.6 % (30.3-42.9) 03/07/21 05:00 MCV 83 fl (79-97) 03/07/21 05:00 MCH 27 pg (28-32) L 03/07/21 05:00 MCHC 33 % (30-34) 03/07/21 05:00 RDW 15.8 % (13.2-15.2) H 03/07/21 05:00 Plt Count 387 K/mm3 (140-440) 03/07/21 05:00 Lymph % (Auto) 35.4 % (13.4-35.0) H 03/06/21 06:05 Power % (Auto) 9.2 % (0.0-7.3) H 03/06/21 06:05 Eos % (Auto) 3.3 % (0.0-4.3) 03/06/21 06:05 Baso % (Auto) 1.0 % (0.0-1.8) 03/06/21 06:05 Lymph # (Auto) 3.9 K/mm3 (1.2-5.4) 03/06/21 06:05 Power # (Auto) 1.0 K/mm3 (0.0-0.8) H 03/06/21 06:05 Eos # (Auto) 0.4 K/mm3 (0.0-0.4) 03/06/21 06:05 Baso # (Auto) 0.1 K/mm3 (0.0-0.1) 03/06/21 06:05 Seg Neutrophils % 51.1 % (40.0-70.0) 03/06/21 06:05 Seg Neutrophils # 5.6 K/mm3 (1.8-7.7) 03/06/21 06:05 ESR 90 mm/Hr (0-20) 03/04/21 21:02 PT 71.4 Sec. (12.2-14.9) H 03/07/21 05:00 INR 7.96 (0.87-1.13) H* 03/07/21 05:00 APTT 89.4 Sec. (24.2-36.6) H* 03/04/21 21:02 Sodium 140 mmol/L (137-145) 03/07/21 05:00 Potassium 4.5 mmol/L (3.6-5.0) 03/07/21 05:00 Chloride 107.8 mmol/L (98-107) H 03/07/21 05:00 Carbon Dioxide 19 mmol/L (22-30) L 03/07/21 05:00 Anion Gap 18 mmol/L 03/07/21 05:00 BUN 40 mg/dL (7-17) H 03/07/21 05:00 Creatinine 3.0 mg/dL (0.6-1.2) H 03/07/21 05:00 Estimated GFR 19 ml/min 03/07/21 05:00 BUN/Creatinine Ratio 13 % 03/07/21 05:00 Glucose 174 mg/dL (65-100) H 03/07/21 05:00 POC Glucose 162 mg/dL (70-105) H 03/07/21 07:27 Hemoglobin A1c 8.3 % (4-6) H 03/05/21 Unknown Calcium 8.8 mg/dL (8.4-10.2) 03/07/21 05:00 Total Bilirubin < 0.20 mg/dL (0.1-1.2) 03/04/21 21:02 AST 14 units/L (5-40) 03/04/21 21:02 ALT 11 units/L (7-56) 03/04/21 21:02 Alkaline Phosphatase 100 units/L (35-129) 03/04/21 21:02 C-Reactive Protein 1.00 mg/dL (0.00-1.30) 03/04/21 21:02 Total Protein 7.4 g/dL (6.3-8.2) 03/04/21 21:02 Albumin 4.0 g/dL (3.9-5) 03/04/21 21:02 Albumin/Globulin Ratio 1.2 % 03/04/21 21:02 Gill/IV: Voiding Method Toilet Active Medications - Current Medications Current Medications: Generic Name Dose Route Start Last Admin Trade Name Freq PRN Reason Stop Dose Admin Acetaminophen 650 mg 03/05/21 01:23 Acetaminophen 325 Mg Tab PO Q4H PRN Pain MILD(1-3)/Fever >100.5/CARPIO Albuterol 2.5 mg 03/05/21 01:23 Albuterol 2.5 Mg/3 Ml Nebu IH Q4HRT PRN Shortness Of Breath Allopurinol 100 mg 03/05/21 14:00 03/06/21 09:36 Allopurinol 100 Mg Tab PO 100 mg DAILY RITA Administration Amlodipine Besylate 10 mg 03/05/21 14:00 03/06/21 09:36 Amlodipine 10 Mg Tab PO 10 mg DAILY RITA Administration Carvedilol 25 mg 03/05/21 13:00 03/06/21 21:44 Carvedilol 25 Mg Tab PO 25 mg BID RITA Administration Dextrose 50 ml 03/05/21 12:27 Dextrose 50% In Water (25gm) 50 Ml Syringe IV Q30MIN PRN Hypoglycemia Protocol Famotidine 10 mg 03/05/21 10:00 03/06/21 21:42 Famotidine 10 Mg Tab PO 10 mg BID RITA Administration Hydromorphone HCl 0.5 mg 03/05/21 01:23 Hydromorphone 1 Mg/1 Ml Inj IV Q3H PRN Pain , Severe (7-10) Insulin Human Isoph/Insulin Regular 10 unit 03/05/21 17:00 03/06/21 17:55 Insulin Nph/Regular 70/30 Inj SUB-Q 10 unit BIDDIAB RITA Administration Insulin Human Lispro 0 unit 03/05/21 16:30 03/07/21 07:30 Insulin Lispro 100 Unit/Ml SUB-Q Not Given AC RITA Protocol Insulin Human Lispro 0 unit 03/05/21 22:00 03/06/21 21:42 Insulin Lispro 100 Unit/Ml SUB-Q 1 unit QHS RITA Administration Protocol Ondansetron HCl 4 mg 03/05/21 01:23 Ondansetron 4 Mg/2 Ml Inj IV Q8H PRN Nausea And Vomiting Oxycodone/Acetaminophen 1 tab 03/05/21 01:23 03/06/21 21:41 Oxycodone /Acetaminophen 5-325mg Tab PO 1 tab Q6H PRN Administration Pain, Moderate (4-6) Sodium Bicarbonate 650 mg 03/05/21 14:00 03/06/21 21:41 Sodium Bicarbonate 650 Mg Tab PO 650 mg TID RITA Administration Sodium Chloride 10 ml 03/05/21 10:00 03/06/21 21:45 Sodium Chloride 0.9% 10 Ml Flush Syringe IV 10 ml BID RITA Administration Sodium Chloride 10 ml 03/05/21 01:23 Sodium Chloride 0.9% 10 Ml Flush Syringe IV PRN PRN LINE FLUSH
[2021-03-07] MEDS: amLODIPine 10 MG TAB PO SCH (10:47)
[2021-03-07] MEDS: allopurinoL 100 MG TAB PO SCH (10:47)
[2021-03-07] MEDS: oxyCODONE /ACETAMINOPHEN 5-325MG TAB PO PRN (10:47)
[2021-03-07] MEDS: FAMOTIDINE 10 MG TAB PO SCH ×2 (10:47→21:45)
[2021-03-07] MEDS: carvediloL 25 MG TAB PO SCH ×2 (10:47→21:44)
--- NOTE | 2021-03-07 17:29 | Progress Note ---
Assessment and Plan 1. CKD stage 4: Known h/o CKD-4. Increase in the creatinine level noted. Lasix stopped. Monitor renal function. Avoid nephrotoxic agents. Meds dosage based on GFR. 2. FEN: Metabolic acidosis, Sod bicarb, monitor. Volume overload, improving. Monitor lytes and volume status. 3. LE swelling and pain: Negative X-ray and duplex scan. Monitor. 4. Supra-therapeutic INR: Per primary. Monitor. 5. DM-2. 6. Hypertension, POA: Monitor BP. Adjust meds as needed. 7. Tobacco smoking: Counseled. Subjective: Patient was seen and examined at the bedside. Doing ok. Examination: General appearance: well-developed, obese, appears emaciated, no distress HEENT: atraumatic Eyes: pupils equal Neck: trachea midline Respiratory: ctab Heart: S1S2, no murmur Abdomen: soft, not distended, bowel sounds heard, NT Integumentary: no obvious rash Neurologic: AO, able to move extremities Ext: trace LE edema Subjective Date of service: 03/07/21 Principal diagnosis: Leg edema Objective - Vital Signs Vital signs: Vital Signs - 12hr 03/07/21 03/07/21 08:20 11:13 Temperature 97.9 F Pulse Rate 78 Respiratory 18 Rate Blood Pressure 154/71 O2 Sat by Pulse 97 97 Oximetry - Lab 03/09/21 05:00 03/09/21 05:00 Most recent lab results Calcium 8.8 mg/dL (8.4-10.2) 03/07/21 05:00 Medications & Allergies - Medications Allergies/Adverse Reactions: Allergies egg Adverse Reaction (Verified 03/05/21 01:35) Vomiting Sulfa (Sulfonamide Antibiotics) Adverse Reaction (Verified 03/05/21 01:34) Swelling OF THE THROAT DAIRY PRODUCTS Adverse Reaction (Uncoded 03/24/17 14:39) Vomiting Home Medications: Home Medications Medication Instructions Recorded Confirmed Last Taken Type Insulin NPH/Regular [NovoLIN 70/30] 25 units SUB-Q BID 03/05/21 03/05/2103/04 17:00 History Losartan Potassium 100 mg PO DAILY 03/05/21 03/06/21 03/04/21 17:00 History Sodium Bicarbonate 650 mg PO BID 03/05/21 03/05/21 02/25/21 17:00 History Warfarin [Coumadin] 7.5 mg PO QDAY 03/05/21 03/05/21 03/04/21 17:00 History allopurinoL [Zyloprim] 100 mg PO DAILY 03/05/21 03/05/21 03/04/21 17:00 History amLODIPine [Norvasc] 10 mg PO DAILY 03/05/21 03/05/21 03/04/21 17:00 History carvediloL [Coreg] 25 mg PO BID 03/05/21 03/05/21 03/04/21 17:00 History Active Medications: Generic Name Dose Route Start Last Admin Trade Name Freq PRN Reason Stop Dose Admin Acetaminophen 650 mg 03/05/21 01:23 Acetaminophen 325 Mg Tab PO Q4H PRN Pain MILD(1-3)/Fever >100.5/CARPIO Albuterol 2.5 mg 03/05/21 01:23 Albuterol 2.5 Mg/3 Ml Nebu IH Q4HRT PRN Shortness Of Breath Allopurinol 100 mg 03/05/21 14:00 03/07/21 10:47 Allopurinol 100 Mg Tab PO 100 mg DAILY RITA Administration Amlodipine Besylate 10 mg 03/05/21 14:00 03/07/21 10:47 Amlodipine 10 Mg Tab PO 10 mg DAILY RITA Administration Carvedilol 25 mg 03/05/21 13:00 03/07/21 10:47 Carvedilol 25 Mg Tab PO 25 mg BID RITA Administration Dextrose 50 ml 03/05/21 12:27 Dextrose 50% In Water (25gm) 50 Ml Syringe IV Q30MIN PRN Hypoglycemia Protocol Famotidine 10 mg 03/05/21 10:00 03/07/21 10:47 Famotidine 10 Mg Tab PO 10 mg BID RITA Administration Hydromorphone HCl 0.5 mg 03/05/21 01:23 Hydromorphone 1 Mg/1 Ml Inj IV Q3H PRN Pain , Severe (7-10) Insulin Human Isoph/Insulin Regular 10 unit 03/05/21 17:00 03/07/21 17:01 Insulin Nph/Regular 70/30 Inj SUB-Q 10 unit BIDDIAB RITA Administration Insulin Human Lispro 0 unit 03/05/21 16:30 03/07/21 16:59 Insulin Lispro 100 Unit/Ml SUB-Q Not Given AC RITA Protocol Insulin Human Lispro 0 unit 03/05/21 22:00 03/06/21 21:42 Insulin Lispro 100 Unit/Ml SUB-Q 1 unit QHS IRTA Administration Protocol Ondansetron HCl 4 mg 03/05/21 01:23 Ondansetron 4 Mg/2 Ml Inj IV Q8H PRN Nausea And Vomiting Oxycodone/Acetaminophen 1 tab 03/05/21 01:23 03/07/21 10:47 Oxycodone /Acetaminophen 5-325mg Tab PO 1 tab Q6H PRN Administration Pain, Moderate (4-6) Sodium Bicarbonate 650 mg 03/05/21 14:00 03/07/21 14:00 Sodium Bicarbonate 650 Mg Tab PO 650 mg TID RITA Administration Sodium Chloride 10 ml 03/05/21 10:00 03/07/21 10:48 Sodium Chloride 0.9% 10 Ml Flush Syringe IV 10 ml BID RITA Administration Sodium Chloride 10 ml 03/05/21 01:23 Sodium Chloride 0.9% 10 Ml Flush Syringe IV PRN PRN LINE FLUSH
[2021-03-08] MEDS: oxyCODONE /ACETAMINOPHEN 5-325MG TAB PO PRN ×2 (02:24→09:18)
[2021-03-08] MEDS: INSULIN LISPRO 100 UNIT/ML SUB-Q SCH ×4 (08:55→23:05)
[2021-03-08 08:57] LABS: Hematocrit 34.2 % (30.3-42.9); Hemoglobin 11.2 gm/dl (10.1-14.3); Mean Corpuscular HGB Conc 33 % (30-34); Mean Corpuscular Volume 83 fl (79-97); Platelet Count 371 K/mm3 (140-440); Red Blood Count 4.14 M/mm3 (3.65-5.03); Red Cell Distribution Width 15.8 % (13.2-15.2)
[2021-03-08] MEDS: allopurinoL 100 MG TAB PO SCH (09:03)
[2021-03-08] MEDS: INSULIN NPH/REGULAR 70/30 INJ SUB-Q SCH ×2 (09:03→18:14)
[2021-03-08] MEDS: SODIUM BICARBONATE 650 MG TAB PO SCH ×3 (09:04→23:04)
[2021-03-08] MEDS: FAMOTIDINE 10 MG TAB PO SCH ×2 (09:04→23:07)
[2021-03-08 09:17] LABS: Calcium 8.7 mg/dL (8.4-10.2)
[2021-03-08] MEDS: amLODIPine 10 MG TAB PO SCH (09:19)
[2021-03-08] MEDS: carvediloL 25 MG TAB PO SCH ×2 (09:20→23:05)
[2021-03-08 09:33] LABS: INR 4.05 (0.87-1.13)
--- NOTE | 2021-03-08 10:53 | Progress Note ---
Assessment and Plan Assessment and plan: (1) Supratherapeutic INR Status: Acute Plan to address problem: Admit the patient to the medical telemetry. We will hold the Coumadin.Patient does not have any life-threatening bleeding and does not require vitamin K administration. We will monitor the PT/INR closely. Recheck PT/INR in the morning (2) Acute on chronic renal failure Status: Acute Qualifiers: Acute renal failure type: unspecified Chronic kidney disease stage: unspecified stage Qualified Code(s): N17.9 - Acute kidney failure, unspecified; N18.9 - Chronic kidney disease, unspecified Plan to address problem: Avoid nephrotoxic drug. Renally dose medication. Nephrology evaluation. Recheck BMP in the morning (3) Swelling of lower extremity Status: Acute Plan to address problem: Tylenol 650 mg p.o. every 6 hours as needed. We will hold the Lasix because of her renal insufficiency. Will consult physical therapy evaluation. Venous ultrasound is negative for DVT Chronic systolic CHF (4) Left ankle pain Status: Acute Qualifiers: Chronicity: acute Qualified Code(s): M25.572 - Pain in left ankle and joints of left foot Plan to address problem: Tylenol 650 mg p.o. every 6 hours as needed. We will hold the Lasix because of her renal insufficiency. Will consult physical therapy evaluation. Venous ultrasound is negative for DVT (5) Left foot pain Status: Acute Plan to address problem: Tylenol 650 mg p.o. every 6 hours as needed. We will hold the Lasix because of her renal insufficiency. Will consult physical therapy evaluation. (6) DVT prophylaxis Status: Acute Plan to address problem: Patient is on Coumadin with supratherapeutic INR. Pepcid 20 mg p.o. twice daily for GI prophylaxis. Patient is a full code 03/06/21 patient with acute on CKD, bilateral leg swelling, supratherapeutic INR from Coumadin. INR 8.74 today. Started on Lasix. On Coumadin , she says for blood clot in kidneys in 2018 03/07/21 patient with acute on CKD, chronic systolic CHF, history of bilateral renal infarcts. Was on Coumadin, now on hold because supratherapeutic INR 7.96 today. Cr 3.0 today, worse. I discussed with Dr. Cochran and he recommends hold Lasix for now. 03/08/21 patient with acute on CKD, chronic systolic CHF and history of bilat eral renal infarcts. She feels better. Less swelling of legs. INR 4.05 improved. Repeat in am Cr a little worse 3.[address] Cochran following Hopefully dc home in few days on lower dose of Coumadin. History Interval history: Bilateral Leg swelling improved Elevated INR improving Hospitalist Physical - Physical exam Narrative exam: Gen: Not in acute distress, lying in bed HEENT:Normocephalic,atraumatic Neck:supple, No JVD Lungs:clear to auscultation bilaterally, no wheeze Heart:S1 and S2 reg, no murmurs, rubs or gallop Abd:soft, non tender, non distended, normal bowel sounds Ext; mild bilat pedal edema, no clubbing, no cyanosis Neuro:Awake,alert,oriented X 3, moves all ext, no focal neurological signs - Constitutional Vitals: Temp Pulse Resp BP Pulse Ox 98.6 F 61 16 150/63 94 03/08/21 04:09 03/08/21 09:20 03/08/21 04:09 03/08/21 09:20 03/08/21 04:09 General appearance: Present: no acute distress Results - Labs CBC & Chem 7: 03/08/21 08:06 03/08/21 08:06 Labs: Laboratory Last Values WBC 10.6 K/mm3 (4.5-11.0) 03/08/21 08:06 RBC 4.14 M/mm3 (3.65-5.03) 03/08/21 08:06 Hgb 11.2 gm/dl (10.1-14.3) 03/08/21 08:06 Hct 34.2 % (30.3-42.9) 03/08/21 08:06 MCV 83 fl (79-97) 03/08/21 08:06 MCH 27 pg (28-32) L 03/08/21 08:06 MCHC 33 % (30-34) 03/08/21 08:06 RDW 15.8 % (13.2-15.2) H 03/08/21 08:06 Plt Count 371 K/mm3 (140-440) 03/08/21 08:06 Lymph % (Auto) 35.4 % (13.4-35.0) H 03/06/21 06:05 Hawkins % (Auto) 9.2 % (0.0-7.3) H 03/06/21 06:05 Eos % (Auto) 3.3 % (0.0-4.3) 03/06/21 06:05 Baso % (Auto) 1.0 % (0.0-1.8) 03/06/21 06:05 Lymph # (Auto) 3.9 K/mm3 (1.2-5.4) 03/06/21 06:05 Hawkins # (Auto) 1.0 K/mm3 (0.0-0.8) H 03/06/21 06:05 Eos # (Auto) 0.4 K/mm3 (0.0-0.4) 03/06/21 06:05 Baso # (Auto) 0.1 K/mm3 (0.0-0.1) 03/06/21 06:05 Seg Neutrophils % 51.1 % (40.0-70.0) 03/06/21 06:05 Seg Neutrophils # 5.6 K/mm3 (1.8-7.7) 03/06/21 06:05 ESR 90 mm/Hr (0-20) 03/04/21 21:02 PT 42.3 Sec. (12.2-14.9) H 03/08/21 08:06 INR 4.05 (0.87-1.13) H 03/08/21 08:06 APTT 89.4 Sec. (24.2-36.6) H* 03/04/21 21:02 Sodium 142 mmol/L (137-145) 03/08/21 08:06 Potassium 4.4 mmol/L (3.6-5.0) 03/08/21 08:06 Chloride 109.2 mmol/L (98-107) H 03/08/21 08:06 Carbon Dioxide 19 mmol/L (22-30) L 03/08/21 08:06 Anion Gap 18 mmol/L 03/08/21 08:06 BUN 40 mg/dL (7-17) H 03/08/21 08:06 Creatinine 3.1 mg/dL (0.6-1.2) H 03/08/21 08:06 Estimated GFR 18 ml/min 03/08/21 08:06 BUN/Creatinine Ratio 13 % 03/08/21 08:06 Glucose 149 mg/dL (65-100) H 03/08/21 08:06 POC Glucose 170 mg/dL (70-105) H 03/07/21 21:23 Hemoglobin A1c 8.3 % (4-6) H 03/05/21 Unknown Calcium 8.7 mg/dL (8.4-10.2) 03/08/21 08:06 Total Bilirubin < 0.20 mg/dL (0.1-1.2) 03/04/21 21:02 AST 14 units/L (5-40) 03/04/21 21:02 ALT 11 units/L (7-56) 03/04/21 21:02 Alkaline Phosphatase 100 units/L (35-129) 03/04/21 21:02 C-Reactive Protein 1.00 mg/dL (0.00-1.30) 03/04/21 21:02 Total Protein 7.4 g/dL (6.3-8.2) 03/04/21 21:02 Albumin 4.0 g/dL (3.9-5) 03/04/21 21:02 Albumin/Globulin Ratio 1.2 % 03/04/21 21:02 Gill/IV: Voiding Method Bedside Commode Active Medications - Current Medications Current Medications: Generic Name Dose Route Start Last Admin Trade Name Freq PRN Reason Stop Dose Admin Acetaminophen 650 mg 03/05/21 01:23 Acetaminophen 325 Mg Tab PO Q4H PRN Pain MILD(1-3)/Fever >100.5/CARPIO Albuterol 2.5 mg 03/05/21 01:23 Albuterol 2.5 Mg/3 Ml Nebu IH Q4HRT PRN Shortness Of Breath Allopurinol 100 mg 03/05/21 14:00 03/08/21 09:03 Allopurinol 100 Mg Tab PO 100 mg DAILY RITA Administration Amlodipine Besylate 10 mg 03/05/21 14:00 03/08/21 09:19 Amlodipine 10 Mg Tab PO 10 mg DAILY RITA Administration Carvedilol 25 mg 03/05/21 13:00 03/08/21 09:20 Carvedilol 25 Mg Tab PO 25 mg BID RITA Administration Dextrose 50 ml 03/05/21 12:27 Dextrose 50% In Water (25gm) 50 Ml Syringe IV Q30MIN PRN Hypoglycemia Protocol Famotidine 10 mg 03/05/21 10:00 03/08/21 09:04 Famotidine 10 Mg Tab PO 10 mg BID RITA Administration Hydromorphone HCl 0.5 mg 03/05/21 01:23 Hydromorphone 1 Mg/1 Ml Inj IV Q3H PRN Pain , Severe (7-10) Insulin Human Isoph/Insulin Regular 10 unit 03/05/21 17:00 03/08/21 09:03 Insulin Nph/Regular 70/30 Inj SUB-Q 10 unit BIDDIAB RITA Administration Insulin Human Lispro 0 unit 03/05/21 16:30 03/08/21 08:55 Insulin Lispro 100 Unit/Ml SUB-Q Not Given AC RITA Protocol Insulin Human Lispro 0 unit 03/05/21 22:00 03/07/21 21:45 Insulin Lispro 100 Unit/Ml SUB-Q 1 unit QHS RITA Administration Protocol Ondansetron HCl 4 mg 03/05/21 01:23 Ondansetron 4 Mg/2 Ml Inj IV Q8H PRN Nausea And Vomiting Oxycodone/Acetaminophen 1 tab 03/05/21 01:23 03/08/21 09:18 Oxycodone /Acetaminophen 5-325mg Tab PO 1 tab Q6H PRN Administration Pain, Moderate (4-6) Sodium Bicarbonate 650 mg 03/05/21 14:00 03/08/21 09:04 Sodium Bicarbonate 650 Mg Tab PO 650 mg TID RITA Administration Sodium Chloride 10 ml 03/05/21 10:00 03/08/21 09:20 Sodium Chloride 0.9% 10 Ml Flush Syringe IV 10 ml BID RITA Administration Sodium Chloride 10 ml 03/05/21 01:23 Sodium Chloride 0.9% 10 Ml Flush Syringe IV PRN PRN LINE FLUSH
--- NOTE | 2021-03-08 13:28 | Progress Note ---
Assessment and Plan Echo 03/05/2021-EF 50 to 55%, mild diastolic dysfunction impaired relaxation pattern. Right ventricular systolic function is normal device lead is present in right ventricle aortic valve calcified, aortic valve thickened but has adequate excursion Echocardiogram 08/10/2017 Mild concentric left ventricular hypertrophy. Moderate to severely decreased left ventricular ejection fraction. 3. Left ventricular ejection fraction is 25-30%. Mildly dilated left atrium. 5. Aortic valve is tricuspid, sclerotic and focally calcified. 6. Mild mitral annular calcification. 7. Mild mitral valve regurgitation. 8. No obvious embolic source appreciated. Clinical correlation advised. Cardiac PET - Date: 08/11/2017- No scintigraphic evidence of ischemia. 2. Left ventricular ejection fraction is 31% at rest and 34% at stress. The left ventricle appears dilated 3. Lexiscan stress ECG is non-diagnostic for ischemia. 4. Coronary artery calcium is absent. 5. Please see a separate report dictated by radiology for the chest CT findings Plan: Recommend continuing to hold patient's Coumadin as a result of supratherapeutic INR of 8.79-> 4.05 Hold losartan in the setting of elevated creatinine Continue amlodipine and Coreg for BP control Patient conjunction with Dr. Gonzales who agrees with this plan of care. Will continue to follow - Patient Problems (1) Chronic HFrEF (heart failure with reduced ejection fraction) Current Visit: Yes Status: Acute (2) HTN (hypertension) Current Visit: Yes Status: Acute (3) Supratherapeutic INR Current Visit: Yes Status: Acute (4) Non-ischemic cardiomyopathy Current Visit: Yes Status: Acute Subjective Date of service: 03/08/21 Principal diagnosis: Leg edema Interval history: Patient resting in bed in no acute distress Sinus 67 on monitor Objective Vital Signs Temp Pulse Resp Resp Resp BP Pulse Ox 03/08/21 09:20 61 150/63 03/08/21 09:19 61 157/63 03/08/21 04:09 98.6 F 73 16 156/70 94 03/08/21 03:24 17 03/08/21 02:24 17 03/07/21 22:00 17 17 17 96 03/07/21 21:44 64 151/70 03/07/21 21:25 98.4 F 67 16 151/61 94 03/07/21 16:56 98.4 F 61 19 136/65 94 - Physical Examination General: No Apparent Distress HEENT: Positive: PERRL Neck: Positive: trachea midline Cardiac: Positive: Reg Rate and Rhythm Lungs: Positive: Normal Breath Sounds Neuro: Positive: Grossly Intact Abdomen: Positive: Soft, Active Bowel Sounds Skin: Negative: Rash, Suspicious Lesions, Ulceration Extremities: Present: upper extr. pulses, lower extr. pulses, edema (trace) - Labs and Meds Coagulation 03/08/21 Range/Units 08:06 PT 42.3 H (12.2-14.9) Sec. INR 4.05 H (0.87-1.13) CBC 03/08/21 Range/Units 08:06 WBC 10.6 (4.5-11.0) K/mm3 RBC 4.14 (3.65-5.03) M/mm3 Hgb 11.2 (10.1-14.3) gm/dl Hct 34.2 (30.3-42.9) % Plt Count 371 (140-440) K/mm3 Comprehensive Metabolic Panel 03/08/21 Range/Units 08:06 Sodium 142 (137-145) mmol/L Potassium 4.4 (3.6-5.0) mmol/L Chloride 109.2 H (98-107) mmol/L Carbon Dioxide 19 L (22-30) mmol/L BUN 40 H (7-17) mg/dL Creatinine 3.1 H (0.6-1.2) mg/dL Glucose 149 H (65-100) mg/dL Calcium 8.7 (8.4-10.2) mg/dL - Imaging and Cardiology EKG: report reviewed Echo: report reviewed - Telemetry EKG Rhythm: Sinus Rhythm - EKG Sinus rhythms and dysrhythmias: sinus rhythm
--- NOTE | 2021-03-08 15:14 | Progress Note ---
Assessment and Plan 1. CKD stage 4: Known h/o CKD-4. Monitor renal function. Creatinine level is about the same as yesterday. Avoid nephrotoxic agents. Meds dosage based on GFR. 2. FEN: Metabolic acidosis, Sod bicarb, monitor. Volume overload, improving. Monitor lytes and volume status. 3. LE swelling and pain: Negative X-ray and duplex scan. Monitor. 4. Supra-therapeutic INR: Per primary. Monitor. 5. DM-2. 6. Hypertension, POA: Monitor BP. Adjust meds as needed. 7. Tobacco smoking: Counseled. Subjective: Patient was seen and examined at the bedside. Doing ok. Examination: General appearance: well-developed, obese, appears emaciated, no distress HEENT: atraumatic Eyes: pupils equal Neck: trachea midline Respiratory: ctab Heart: S1S2, no murmur Abdomen: soft, not distended, bowel sounds heard, NT Integumentary: no obvious rash Neurologic: AO, able to move extremities Ext: trace LE edema Subjective Date of service: 03/08/21 Principal diagnosis: Leg edema Objective - Vital Signs Vital signs: Vital Signs - 12hr 03/08/21 03/08/21 03/08/21 03:24 04:09 09:19 Temperature 98.6 F Pulse Rate 73 61 Respiratory 17 16 Rate Blood Pressure 156/70 157/63 O2 Sat by Pulse 94 Oximetry 03/08/21 03/08/21 09:20 11:53 Temperature 98.6 F Pulse Rate 61 68 Respiratory 18 Rate Blood Pressure 150/63 141/61 O2 Sat by Pulse 93 Oximetry - Lab 03/09/21 05:00 03/09/21 05:00 Most recent lab results Calcium 8.7 mg/dL (8.4-10.2) 03/08/21 08:06 Medications & Allergies - Medications Allergies/Adverse Reactions: Allergies egg Adverse Reaction (Verified 03/05/21 01:35) Vomiting Sulfa (Sulfonamide Antibiotics) Adverse Reaction (Verified 03/05/21 01:34) Swelling OF THE THROAT DAIRY PRODUCTS Adverse Reaction (Uncoded 03/24/17 14:39) Vomiting Home Medications: Home Medications Medication Instructions Recorded Confirmed Last Taken Type Insulin NPH/Regular [NovoLIN 70/30] 25 units SUB-Q BID 03/05/21 03/05/21 03/04/21 17:00 History Losartan Potassium 100 mg PO DAILY 03/05/21 03/06/21 03/04/21 17:00 History Sodium Bicarbonate 650 mg PO BID 03/05/21 03/05/21 02/25/21 17:00 History Warfarin [Coumadin] 7.5 mg PO QDAY 03/05/21 03/05/21 03/04/21 17:00 History allopurinoL [Zyloprim] 100 mg PO DAILY 03/05/21 03/05/21 03/04/21 17:00 History amLODIPine [Norvasc] 10 mg PO DAILY 03/05/21 03/05/21 03/04/21 17:00 History carvediloL [Coreg] 25 mg PO BID 03/05/21 03/05/21 03/04/21 17:00 History Active Medications: Generic Name Dose Route Start Last Admin Trade Name Freq PRN Reason Stop Dose Admin Acetaminophen 650 mg 03/05/21 01:23 Acetaminophen 325 Mg Tab PO Q4H PRN Pain MILD(1-3)/Fever >100.5/CARPIO Albuterol 2.5 mg 03/05/21 01:23 Albuterol 2.5 Mg/3 Ml Nebu IH Q4HRT PRN Shortness Of Breath Allopurinol 100 mg 03/05/21 14:00 03/08/21 09:03 Allopurinol 100 Mg Tab PO 100 mg DAILY RITA Administration Amlodipine Besylate 10 mg 03/05/21 14:00 03/08/21 09:19 Amlodipine 10 Mg Tab PO 10 mg DAILY RITA Administration Carvedilol 25 mg 03/05/21 13:00 03/08/21 09:20 Carvedilol 25 Mg Tab PO 25 mg BID RITA Administration Dextrose 50 ml 03/05/21 12:27 Dextrose 50% In Water (25gm) 50 Ml Syringe IV Q30MIN PRN Hypoglycemia Protocol Famotidine 10 mg 03/05/21 10:00 03/08/21 09:04 Famotidine 10 Mg Tab PO 10 mg BID RITA Administration Hydromorphone HCl 0.5 mg 03/05/21 01:23 Hydromorphone 1 Mg/1 Ml Inj IV Q3H PRN Pain , Severe (7-10) Insulin Human Isoph/Insulin Regular 10 unit 03/05/21 17:00 03/08/21 09:03 Insulin Nph/Regular 70/30 Inj SUB-Q 10 unit BIDDIAB RITA Administration Insulin Human Lispro 0 unit 03/05/21 16:30 03/08/21 13:25 Insulin Lispro 100 Unit/Ml SUB-Q Not Given AC [facility] Protocol Insulin Human Lispro 0 unit 03/05/21 22:00 03/07/21 21:45 Insulin Lispro 100 Unit/Ml SUB-Q 1 unit QHS RITA Administration Protocol Ondansetron HCl 4 mg 03/05/21 01:23 Ondansetron 4 Mg/2 Ml Inj IV Q8H PRN Nausea And Vomiting Oxycodone/Acetaminophen 1 tab 03/05/21 01:23 03/08/21 09:18 Oxycodone /Acetaminophen 5-325mg Tab PO 1 tab Q6H PRN Administration Pain, Moderate (4-6) Sodium Bicarbonate 650 mg 03/05/21 14:00 03/08/21 13:32 Sodium Bicarbonate 650 Mg Tab PO 650 mg TID RITA Administration Sodium Chloride 10 ml 03/05/21 10:00 03/08/21 09:20 Sodium Chloride 0.9% 10 Ml Flush Syringe IV 10 ml BID RITA Administration Sodium Chloride 10 ml 03/05/21 01:23 Sodium Chloride 0.9% 10 Ml Flush Syringe IV PRN PRN LINE FLUSH
[2021-03-09 06:13] LABS: Hematocrit 34.1 % (30.3-42.9); Hemoglobin 10.8 gm/dl (10.1-14.3); Mean Corpuscular HGB Conc 32 % (30-34); Mean Corpuscular Volume 83 fl (79-97); Platelet Count 400 K/mm3 (140-440); Red Blood Count 4.11 M/mm3 (3.65-5.03); Red Cell Distribution Width 15.6 % (13.2-15.2)
[2021-03-09 06:22] LABS: INR 3.23 (0.87-1.13)
[2021-03-09 06:39] LABS: Calcium 9.4 mg/dL (8.4-10.2)
[2021-03-09] MEDS: SODIUM BICARBONATE 650 MG TAB PO SCH (07:38)
[2021-03-09] MEDS: oxyCODONE /ACETAMINOPHEN 5-325MG TAB PO PRN (07:39)
[2021-03-09] MEDS: INSULIN LISPRO 100 UNIT/ML SUB-Q SCH ×2 (08:47→11:46)
[2021-03-09] MEDS: INSULIN NPH/REGULAR 70/30 INJ SUB-Q SCH (08:57)
--- NOTE | 2021-03-09 09:48 | Progress Note ---
Assessment and Plan 1. CKD stage 4: Known h/o CKD-4. Monitor renal function. Slight decrease in the Creatinine level noted. Avoid nephrotoxic agents. Meds dosage based on GFR. 2. FEN: Metabolic acidosis, Sod bicarb, monitor. LE edema, improved. Monitor lytes and volume status. 3. LE swelling and pain: Negative X-ray and duplex scan. Monitor. 4. Supra-therapeutic INR: Improved. Monitor. 5. DM-2. 6. Hypertension, POA: Monitor BP. Adjust meds as needed. 7. Tobacco smoking: Counseled. Subjective: Patient was seen and examined at the bedside. Doing ok. Examination: General appearance: well-developed, obese, appears emaciated, no distress HEENT: atraumatic Eyes: pupils equal Neck: trachea midline Respiratory: ctab Heart: S1S2, no murmur Abdomen: soft, not distended, bowel sounds heard, NT Integumentary: no obvious rash Neurologic: AO, able to move extremities Ext: no edema Subjective Date of service: 03/09/21 Principal diagnosis: Leg edema Objective - Vital Signs Vital signs: Vital Signs - 12hr 03/08/21 03/08/21 03/09/21 22:00 22:02 04:47 Temperature 98.7 F 98.0 F Pulse Rate 64 68 Respiratory 16 20 18 Rate Blood Pressure 157/60 140/55 O2 Sat by Pulse 94 96 92 Oximetry - Lab 03/09/21 05:00 03/09/21 05:00 Most recent lab results Calcium 9.4 mg/dL (8.4-10.2) 03/09/21 05:00 Medications & Allergies - Medications Allergies/Adverse Reactions: Allergies egg Adverse Reaction (Verified 03/05/21 01:35) Vomiting Sulfa (Sulfonamide Antibiotics) Adverse Reaction (Verified 03/05/21 01:34) Swelling OF THE THROAT DAIRY PRODUCTS Adverse Reaction (Uncoded 03/24/17 14:39) Vomiting Home Medications: Home Medications Medication Instructions Recorded Confirmed Last Taken Type Insulin NPH/Regular [NovoLIN 70/30] 25 units SUB-Q BID 03/05/21 03/05/21 03/04/21 17:00 History Losartan Potassium 100 mg PO DAILY 03/05/21 03/06/21 03/04/21 17:00 History Sodium Bicarbonate 650 mg PO BID 03/05/21 03/05/21 02/25/21 17:00 History Warfarin [Coumadin] 7.5 mg PO QDAY 03/05/21 03/05/21 03/04/21 17:00 History allopurinoL [Zyloprim] 100 mg PO DAILY 03/05/21 03/05/21 03/04/21 17:00 History amLODIPine [Norvasc] 10 mg PO DAILY 03/05/21 03/05/21 03/04/21 17:00 History carvediloL [Coreg] 25 mg PO BID 03/05/21 03/05/21 03/04/21 17:00 History Active Medications: Generic Name Dose Route Start Last Admin Trade Name Freq PRN Reason Stop Dose Admin Acetaminophen 650 mg 03/05/21 01:23 Acetaminophen 325 Mg Tab PO Q4H PRN Pain MILD(1-3)/Fever >100.5/CARPIO Albuterol 2.5 mg 03/05/21 01:23 Albuterol 2.5 Mg/3 Ml Nebu IH Q4HRT PRN Shortness Of Breath Allopurinol 100 mg 03/05/21 14:00 03/08/21 09:03 Allopurinol 100 Mg Tab PO 100 mg DAILY RITA Administration Amlodipine Besylate 10 mg 03/05/21 14:00 03/08/21 09:19 Amlodipine 10 Mg Tab PO 10 mg DAILY RITA Administration Carvedilol 25 mg 03/05/21 13:00 03/08/21 23:05 Carvedilol 25 Mg Tab PO 25 mg BID RITA Administration Dextrose 50 ml 03/05/21 12:27 Dextrose 50% In Water (25gm) 50 Ml Syringe IV Q30MIN PRN Hypoglycemia Protocol Famotidine 10 mg 03/05/21 10:00 03/08/21 23:07 Famotidine 10 Mg Tab PO 10 mg BID RITA Administration Hydromorphone HCl 0.5 mg 03/05/21 01:23 03/08/21 23:07 Hydromorphone 1 Mg/1 Ml Inj IV 0.5 mg Q3H PRN Administration Pain , Severe (7-10) Insulin Human Isoph/Insulin Regular 10 unit 03/05/21 17:00 03/09/21 08:57 Insulin Nph/Regular 70/30 Inj SUB-Q Not Given BIDDIAB [facility] Insulin Human Lispro 0 unit 03/05/21 16:30 03/09/21 08:47 Insulin Lispro 100 Unit/Ml SUB-Q Not Given AC RITA Protocol Insulin Human Lispro 0 unit 03/05/21 22:00 03/08/21 23:05 Insulin Lispro 100 Unit/Ml SUB-Q 1 unit QHS RITA Administration Protocol Ondansetron HCl 4 mg 03/05/21 01:23 Ondansetron 4 Mg/2 Ml Inj IV Q8H PRN Nausea And Vomiting Oxycodone/Acetaminophen 1 tab 03/05/21 01:23 03/09/21 07:39 Oxycodone /Acetaminophen 5-325mg Tab PO 1 tab Q6H PRN Administration Pain, Moderate (4-6) Sodium Bicarbonate 650 mg 03/05/21 14:00 03/09/21 07:38 Sodium Bicarbonate 650 Mg Tab PO 650 mg TID RITA Administration Sodium Chloride 10 ml 03/05/21 10:00 03/08/21 23:08 Sodium Chloride 0.9% 10 Ml Flush Syringe IV 10 ml BID RITA Administration Sodium Chloride 10 ml 03/05/21 01:23 Sodium Chloride 0.9% 10 Ml Flush Syringe IV PRN PRN LINE FLUSH
[2021-03-09] MEDS: FAMOTIDINE 10 MG TAB PO SCH (11:10)
[2021-03-09] MEDS: carvediloL 25 MG TAB PO SCH (11:10)
[2021-03-09] MEDS: amLODIPine 10 MG TAB PO SCH (11:11)
[2021-03-09] MEDS: allopurinoL 100 MG TAB PO SCH (11:11)
[2021-03-09 11:12] VITALS: BP 149/68
--- NOTE | 2021-03-09 12:44 | Progress Note ---
Assessment and Plan Echo 03/05/2021-EF 50 to 55%, mild diastolic dysfunction impaired relaxation pattern. Right ventricular systolic function is normal device lead is present in right ventricle aortic valve calcified, aortic valve thickened but has adequate excursion Echocardiogram 08/10/2017 Mild concentric left ventricular hypertrophy. Moderate to severely decreased left ventricular ejection fraction. 3. Left ventricular ejection fraction is 25-30%. Mildly dilated left atrium. 5. Aortic valve is tricuspid, sclerotic and focally calcified. 6. Mild mitral annular calcification. 7. Mild mitral valve regurgitation. 8. No obvious embolic source appreciated. Clinical correlation advised. Cardiac PET - Date: 08/11/2017- No scintigraphic evidence of ischemia. 2. Left ventricular ejection fraction is 31% at rest and 34% at stress. The left ventricle appears dilated 3. Lexiscan stress ECG is non-diagnostic for ischemia. 4. Coronary artery calcium is absent. 5. Please see a separate report dictated by radiology for the chest CT findings Plan: Recommend continuing to hold patient's Coumadin as a result of supratherapeutic INR of 8.79-> 4.05->3.23 Recommend holding losartan in the setting of elevated creatinine. May resume when renal function is at baseline Continue amlodipine and Coreg for BP control Patient cardiac status is stable. Will sign off Patient conjunction with Dr. Garzon who agrees with this plan of care. - Patient Problems (1) Chronic HFrEF (heart failure with reduced ejection fraction) Current Visit: Yes Status: Acute (2) HTN (hypertension) Current Visit: Yes Status: Acute (3) Supratherapeutic INR Current Visit: Yes Status: Acute (4) Non-ischemic cardiomyopathy Current Visit: Yes Status: Acute Subjective Date of service: 03/09/21 Principal diagnosis: Leg edema Interval history: Patient resting in bed in no acute distress Sinus 62 on monitor Objective Vital Signs Temp Pulse Resp Resp Resp BP Pulse Ox 03/09/21 11:11 72 149/68 03/09/21 11:10 72 149/68 03/09/21 10:00 16 17 17 94 03/09/21 04:47 98.0 F 68 18 140/55 92 03/08/21 22:02 98.7 F 64 20 157/60 96 03/08/21 22:00 16 94 03/08/21 15:48 98.4 F 68 16 152/75 95 - Physical Examination General: No Apparent Distress HEENT: Positive: PERRL Neck: Positive: trachea midline Cardiac: Positive: Reg Rate and Rhythm Lungs: Positive: Normal Breath Sounds Neuro: Positive: Grossly Intact Abdomen: Positive: Soft, Active Bowel Sounds Skin: Negative: Rash, Suspicious Lesions, Ulceration Extremities: Present: upper extr. pulses, lower extr. pulses, edema (trace) - Labs and Meds Coagulation 03/09/21 Range/Units 05:00 PT 35.5 H (12.2-14.9) Sec. INR 3.23 H (0.87-1.13) CBC 03/09/21 Range/Units 05:00 WBC 10.6 (4.5-11.0) K/mm3 RBC 4.11 (3.65-5.03) M/mm3 Hgb 10.8 (10.1-14.3) gm/dl Hct 34.1 (30.3-42.9) % Plt Count 400 (140-440) K/mm3 Comprehensive Metabolic Panel 03/09/21 Range/Units 05:00 Sodium 143 (137-145) mmol/L Potassium 4.3 (3.6-5.0) mmol/L Chloride 110.5 H (98-107) mmol/L Carbon Dioxide 20 L (22-30) mmol/L BUN 39 H (7-17) mg/dL Creatinine 2.9 H (0.6-1.2) mg/dL Glucose 126 H (65-100) mg/dL Calcium 9.4 (8.4-10.2) mg/dL - Imaging and Cardiology EKG: report reviewed Echo: report reviewed - Telemetry EKG Rhythm: Sinus Rhythm - EKG Sinus rhythms and dysrhythmias: sinus rhythm
--- NOTE | 2021-03-09 15:18 | Discharge Summary ---
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 --Acute on Chronic systolic CHF, POA. -- Left ankle pain, Left foot pain. --Non-ischemic cardiomyopathy. --Morbid obesity Time spent for discharge: 34 minutes Core Measure Documentation - Palliative Care Palliative Care/ Comfort Measures: Not Applicable - Core Measures Any of the following diagnoses?: heart failure - Heart Failure Discharge Requirements JAN/ARB for LVSD if EF <40%: Not Applicable Reason for no JAN/ARB: Renal impairment Beta xochilt at discharge: Yes Exam - Constitutional Vitals: Temp Pulse Resp BP Pulse Ox 98.0 F 72 17 149/68 94 03/09/21 04:47 03/09/21 11:11 03/09/21 10:00 03/09/21 11:11 03/09/21 10:00 Plan Activity: advance as tolerated Weight Bearing Status: Weight Bear as Tolerated Diet: low fat, low salt Special Instructions: restrict fluid intake to (1.2L daily) Additional Instructions: Resume coumadin when INR <2.5. Check your INR tomorrow at your PCP office Follow up with: NORA MELLO MD [Primary Care Provider] - 7 Days JERMAINE JOHNSON MD [Staff Physician] - 7 Days
== END 2021-03-09 17:03 | disposition home or self-care (01) | DRG 291 ==
LOC: ED 19:41 → 3A 03-05 01:23 → OBSVTOIN 03-05 16:19 → 3A 03-05 20:54
PROVIDERS: ADMIT Hospitalist; ATTEND Internal Medicine
DX: I13.0 Hypertensive heart and chronic kidney disease with heart failure and stage 1 through stage 4 chronic kidney disease, or unspecified chronic kidney disease (principal); I50.23 Acute on chronic systolic (congestive) heart failure; N17.0 Acute kidney failure with tubular necrosis; N18.4 Chronic kidney disease, stage 4 (severe); N17.8 Other acute kidney failure; I42.8 Other cardiomyopathies; M79.89 Other specified soft tissue disorders; R79.1 Abnormal coagulation profile; N18.9 Chronic kidney disease, unspecified; Z20.822 Contact with and (suspected) exposure to COVID-19; M25.572 Pain in left ankle and joints of left foot; Z82.49 Family history of ischemic heart disease and other diseases of the circulatory system; E11.22 Type 2 diabetes mellitus with diabetic chronic kidney disease; E78.5 Hyperlipidemia, unspecified; E66.01 Morbid (severe) obesity due to excess calories
CPT/HCPCS: 36415; 71045; 80048; 80053; 82962; 83036; 85025; 85027; 85610; 85652; 85730; 86140; 93005; 93306; 94640; G0378; J1170; J1815